=== PATIENT | female | born 1960 | race Caucasian/White ===

== ENCOUNTER 2020-05-20 14:45 | Inpatient (IN) ==
[2020-05-20] MEDS ORDERED: oxyCODONE HCL IR 5 MG TAB (IMMEDIATE RELEASE) PO STA (15:14)
--- NOTE | 2020-05-20 15:41 | Emergency Department Note ---
Impression & Plan Closed right ankle fracture, Cirrhosis ED Provider Note CHIEF COMPLAINT: Right ankle pain HISTORY OF PRESENT ILLNESS: This 59-year-old female patient presents to the emergency department via private vehicle 1 day after sustaining an injury to the right lower leg, ankle and foot when she tripped on a table leg and fell, landing on the right lower extremity. She states her right foot got caught below her during the fall. The patient complains of pain along the entire tibia/fibula, ankle, and foot, primarily the lateral aspect of the right foot. The patient rates the pain as throbbing and aching and 8/10. The patient is not able to bear weight on the foot. Constant pain, worse with movement, weight bearing, and the dependent position. No knee pain, the patient is able to move their toes. No numbness or weakness of the foot, no laceration. The patient has not had a previous fracture to this ankle. The patient has taken 2 Tylenol for the pain. The patient denies any other injury. REVIEW OF SYSTEMS: A 6 system review of systems was completed with positives and pertinent negatives listed in the HPI. ALLERGIES: None PHYSICAL EXAM: Vital Signs: Reviewed Nurse's notes, vital signs stable. GENERAL: This is a 59-year-old white female, no acute distress, but appears in pain, well-developed, well-nourished. MENTAL STATUS: Alert, oriented to person place and time, and cooperative. MUSCULOSKELETAL: The right ankle is diffusely swollen and tender, swelling extending into the foot and more proximally over the davis, the lateral malleolus, but the skin is intact and there is no ligamentous instability. There is fifth metatarsal tenderness. There is tenderness over the rest of the foot. There is no calf tenderness. There is no visual deformity. The foot and toes are warm and well-perfused. Dorsalis pedis pulse 2+. Sensation to pain and light touch is intact. Capillary refill less than 2 seconds. RADIOLOGY: RIGHT TIBIA AND FIBULA 2 VIEWS; RIGHT ANKLE 3 VIEWS CLINICAL HISTORY: Fall with right leg injury. FINDINGS: AP and crosstable lateral views of the right tibia and fibula with AP, crosstable lateral, and oblique views of the right ankle are obtained. No prior studies are available for comparison at the time of dictation. The skeletal str uctures are osteopenic. There is a distracted an angulated spiral fracture of the distal fibula. There is also a displaced fracture of the medial malleolus. There is medial displacement of the talus by approximately 1 cm at the tibiotalar articulation. There are also be fracture of the posterior malleolus. There is associated joint effusion, significant soft tissue edema around the ankle. The proximal tibia and fibula appear intact. The knee joint is grossly maintained. An os trigonum is incidentally noted. IMPRESSION: 1. Bimalleolar (and possibly trimalleolar) fracture/dislocation of the ankle joint as above 2. There is associated joint effusion and soft tissue edema. 3. The proximal tibia and fibula appear intact. Electronically signed by: Perez Chavez M.D. 05/20/2020 3:56 PM XR foot RT min 3V routine CLINICAL HISTORY: Right foot pain status post trauma COMPARISON: None. DISCUSSION: The lateral view reveals a distal fibular fracture, medial malleolar fracture, and disruption of the ankle mortise. There is a small age- indeterminate bony density projected over the dorsal aspect of the talus. No fractures of the foot proper are visualized. IMPRESSION: Fracture subluxation of the ankle. ACT 112: Negative or not required by law. Electronically signed by: Hill Pruitt M.D. 05/20/2020 3:42 PM XR ankle RT 2V HISTORY: 59 years-old Female post-reduction acute right ankle fracture COMPARISON: Right foot and ankle radiographs of same day at 3:28 PM TECHNIQUE: 2 views of the right ankle were obtained status post reduction and casting FINDINGS: Status post reduction and casting of the acute trimalleolar right ankle fracture. There is persistent displacement and angulation of the distal fibular fracture which appears unchanged. Mildly comminuted posterior malleolar fracture is also unchanged. There is slightly improved alignment of the medial malleolar fracture with persistent displacement. Moderate diffuse soft tissue swelling with probable joint effusion. Fine bony detail is limited secondary to overlying casting material. IMPRESSION: Status post casting and reduction of the acute trimalleolar right ankle fracture with alignment as above. ACT 112: Negative or not required by law. The above report was generated using voice recognition software. It may contain grammatical, syntax or spelling errors. Electronically signed by: Jorge Frausto M.D. 05/20/2020 5:11 PM EMERGENCY DEPARTMENT COURSE: I examined the patient. Patient was medicated with OxyIR for pain. The extremity was elevated and iced. X-rays of the right ankle, foot, and tibia/fibula were reviewed by myself and read by radiology and reveal a trimalleolar fracture/dislocation of the right ankle. I discussed the findings with the patient at bedside. I discussed the case with Shamir Muller PA-C with Orthopedics/Dr. Schneider. Recommendation made to attempt to reduce fracture as best as possible, splint the extremity, and given ambulatory dysfunction and complications at home, with reported frequent falls, per her sister, she will be admitted to the hospital/medicine service for optimization and for more definitive care with orthopedics. I discussed the case with the propagation manager. I discussed the case with Dr. Chaidez, [facility] Hospitalist physician. He did agree to see and evaluate the patient. IV access obtained, labs drawn for admission. The patient was medicated with 100mcg IV Fentanyl. The ankle was minimally reduced, however the patient did not tolerate this procedure well at all. A well-padded posterior leg/stirrup orthoglass splint was applied to the ankle under my direction and the position was satisfactory. Neurovascular status was rechecked by myself and intact. Post-reduction films with very minimal improvement in alignment of the medial malleolar fracture. The patient will be admitted to the hospitalist service. Please see hospitalist and orthopedics dictation regarding ongoing management and care of this patient. PROCEDURE NOTE: Right ankle fracture reduction and splint application: Verbal consent obtained to perform the procedure. The patient was medicated with IV Fentanyl. The toes were grasped and pressure gently applied to the lateral aspect of the ankle. Minimal movement noted at the joint. The patient was not tolerating the procedure well, screaming and crying out in pain. Decision made at this time to splint in place. Cast padding used to pad the extremity. A posterior leg with stirrup orthoglass splint applied and secured with chacha wrap. Neurovascular status rechecked and intact. DIFFERENTIAL DIAGNOSIS: Fracture, subluxation, dislocation, contusion, ligamentous injury, neurovascular, compartment syndrome, rhabdomyolysis, as well as other pathologies. I attest that I have personally reviewed the patient's current medication list. Patient was found to have normal blood pressure on screening and does not require follow-up. The chart was completed utilizing [employer] Speech voice recognition software. Grammatical errors, random word insertions, pronoun errors, and incomplete s entences are an occasional consequence of this system due to software limitations, ambient noise, and hardware issues. Any formal questions or concerns about the content, text, or information contained within the body of this dictation should be directly addressed to the provider for clarification. Past Med/Surg History Medical History Chronic kidney disease Cirrhosis of liver History of alcohol abuse Hypothyroidism Incontinence Social History Smoking Status: Current every day smoker Feels Safe at Home: Yes Allergies Allergies Allergy/AdvReac Type Severity Reaction Status Date / Time No Known Allergies Allergy Unverified 05/20/20 16:10 Home Meds Home Medications Medication Instructions Recorded Confirmed ferrous sulfate 325 mg PO QAM 05/20/20 05/20/20 folic acid 1 mg PO QAM 05/20/20 05/20/20 lactulose 20 g PO DAILY 05/20/20 05/20/20 levothyroxine 25 mcg PO DAILY 05/20/20 05/20/20 pantoprazole 40 mg PO QAM 05/20/20 05/20/20 propranolol 40 mg PO DAILY 05/20/20 05/20/20 sertraline [Zoloft] 100 mg PO QPM 05/20/20 05/20/20 spironolactone 50 mg PO BID 05/20/20 05/20/20 Results & Data (ED) Vital Signs Vital Signs - 24 hr 05/20/20 14:48 Temperature 37 C Temperature Source Oral Pulse Rate 70 Respiratory Rate 18 Blood Pressure 108/66 Blood Pressure Mean 80 Pulse Oximetry 97 Oxygen Delivery Method Room Air Sepsis Recent Fever Within 48 Hours No Sepsis New/Unexplained Change in Mental Status No Sepsis Action Taken by Nursing No Action Required Laboratory Data Result diagrams: 05/20/20 16:22 05/20/20 16:22 Lab Results 05/20/20 05/20/20 05/20/20 Range/Units 16:22 16:22 16:22 WBC 7.36 (4.8-10.8) K/uL RBC 2.74 L (4.2-5.4) M/uL Hgb 8.8 L (12.0-16.0) g/dL Hct 26.9 L (37-47) % MCV 98.2 (80-100) fL MCH 32.1 (25-34) pg MCHC 32.7 (32-36) g/dL RDW Std Deviation 64.6 H (36.4-46.3) fL RDW Coeff of Lam 18.1 H (11.5-14.5) % Plt Count 113 L (130-400) K/uL MPV 10.5 H (7.4-10.4) fL Immature Gran % (Auto) 0.5 % Neut % (Auto) 66.2 % Lymph % (Auto) 16.2 % Candler % (Auto) 16.2 % Eos % (Auto) 0.4 % Baso % (Auto) 0.5 % Neut # (Auto) 4.87 (1.4-6.5) K/uL Lymph # (Auto) 1.19 L (1.2-3.4) K/uL Candler # (Auto) 1.19 H (0.11-0.59) K/uL Eos # (Auto) 0.03 (0-0.5) K/uL Baso # (Auto) 0.04 (0-0.2) K/uL Immature Gran # (Auto) 0.04 H (0.00-0.02) K/uL PT 14.6 H (9.0-12.0) Seconds INR 1.4 H (0.9-1.1) APTT 30.5 (21.0-31.0) Seconds PTT Ratio 1.1 Sodium 139 (136-145) mmol/L Potassium 3.7 (3.5-5.1) mmol/L Chloride 107 (98-107) mmol/L Carbon Dioxide 24 (21-32) mmol/L Anion Gap 8.0 (3-11) BUN 16 (7-18) mg/dl Creatinine 1.06 (0.6-1.2) mg/dl Est Cr Clr Drug Dosing Not Reportable Est GFR ( Amer) 67.0 Est GFR (Non-Af Amer) 57.8 BUN/Creatinine Ratio 15.5 (10-20) Glucose 93 (70-99) mg/dl Calcium 8.2 L (8.5-10.1) mg/dl Total Bilirubin 3.6 H (0.2-1) mg/dl AST 97 H (15-37) U/L ALT 29 (12-78) U/L Alkaline Phosphatase 156 H (45-117) U/L Total Protein 7.3 (6.4-8.2) gm/dl Albumin 2.5 L (3.4-5.0) gm/dl Globulin 4.8 H (2.5-4.0) gm/dl Albumin/Globulin Ratio 0.5 L (0.9-2) Administered Medications Discontinued Medications Fentanyl Citrate (Fentanyl Citrate 100 Mcg/2 Ml Vial) 100 mcg IV NOW STA Stop: 05/20/20 16:24 Last Admin: 05/20/20 16:42 Dose: 100 mcg Documented by: [id number] Oxycodone HCl (Oxycodone Hcl Ir 5 Mg Tab (Immediate Release)) 5 mg PO NOW STA Stop: 05/20/20 15:15 Last Admin: 05/20/20 15:29 Dose: 5 mg Documented by: [id number] Discharge Plan Visit Data Chief Complaint: Ankle Pain Stated Complaint: BROKEN ANKLE ED Provider: Raffi Bosch ED Midlevel Provider: Jessica Sullivan Discharge Problem: Closed right ankle fracture, Cirrhosis Patient Disposition: Admitted As Inpatient Condition: Good Forms Stand Alone Forms: My [facility] Prescriptions Prescriptions: No Action ferrous sulfate 325 mg (65 mg iron) Capsule, Extended Release 325 mg PO QAM RF: 0 folic acid 1 mg Tablet 1 mg PO QAM RF: 0 lactulose 10 gram/15 mL Solution 20 g PO DAILY RF: 0 levothyroxine 25 mcg Capsule 25 mcg PO DAILY RF: 0 pantoprazole 40 mg Tablet,Delayed Release (Dr/Ec) 40 mg PO QAM RF: 0 propranolol 40 mg Tablet 40 mg PO DAILY RF: 0 spironolactone 50 mg Tablet 50 mg PO BID RF: 0 sertraline [Zoloft] 100 mg Tablet 100 mg PO QPM RF: 0 Referrals Referrals: PCP,NO [Primary Care Provider] -
--- NOTE | 2020-05-20 15:43 | XRay Report ---
XR foot RT min 3V routine CLINICAL HISTORY: Right foot pain status post trauma COMPARISON: None. DISCUSSION: The lateral view reveals a distal fibular fracture, medial malleolar fracture, and disrup tion of the ankle mortise. There is a small age-indeterminate bony density projected over the dorsal aspect of the talus. No fractures of the foot proper are visualized. IMPRESSION: Fracture subluxation of the ankle. ACT 112: Negative or not required by law. Electronically signed by: Hill Pruitt M.D. 05/20/2020 3:42 PM
--- NOTE | 2020-05-20 15:57 | XRay Report ---
RIGHT TIBIA AND FIBULA 2 VIEWS; RIGHT ANKLE 3 VIEWS CLINICAL HISTORY: Fall with right leg injury. FINDINGS: AP and crosstable lateral views of the right tibia and fibula with AP, crosstable lateral, and oblique views of the right ankle are obtained. No prior studies are available for comparison at t he time of dictation. The skeletal structures are osteopenic. There is a distracted an angulated spir al fracture of the distal fibula. There is also a displaced fracture of the medial malleolus. There i s medial displacement of the talus by approximately 1 cm at the tibiotalar articulation. There are al so be fracture of the posterior malleolus. There is associated joint effusion, significant soft tissu e edema around the ankle. The proximal tibia and fibula appear intact. The knee joint is grossly main tained. An os trigonum is incidentally noted. IMPRESSION: 1. Bimalleolar (and possibly trimalleolar) fracture/dislocation of the ankle joint as above 2. There is associated joint effusion and soft tissue edema. 3. The proximal tibia and fibula appear intact. Electronically signed by: Perez Chavez M.D. 05/20/2020 3:56 PM
[2020-05-20] MEDS ORDERED: fentaNYL citrate 100 MCG/2 ML VIAL IV STA (16:23)
[2020-05-20 16:33] LABS: Basophils # (auto) 0.04 K/uL (0-0.2); Basophils % (auto) 0.5 %; Eosinophils # (auto) 0.03 K/uL (0-0.5); Eosinophils % (auto) 0.4 %; Hematocrit (blood only) 26.9 % (37-47); Hemoglobin 8.8 g/dL (12.0-16.0); Immature Granulocytes # (auto) 0.04 K/uL (0.00-0.02); Immature Granulocytes % (auto) 0.5 %; Lymphocytes # (auto) 1.19 K/uL (1.2-3.4); Lymphocytes % (auto) 16.2 %; Mean Corpuscular Hemoglobin 32.1 pg (25-34); Mean Corpuscular Hgb Conc 32.7 g/dL (32-36); Mean Corpuscular Volume 98.2 fL (80-100); Mean Platelet Volume 10.5 fL (7.4-10.4); Monocytes # (auto) 1.19 K/uL (0.11-0.59); Monocytes % (auto) 16.2 %; Neutrophils # (auto) 4.87 K/uL (1.4-6.5); Neutrophils % (auto) 66.2 %; Platelet Count 113 K/uL (130-400); RDW Coefficient of Variation 18.1 % (11.5-14.5); RDW Standard Deviation 64.6 fL (36.4-46.3); Red Blood Count 2.74 M/uL (4.2-5.4); White Blood Count 7.36 K/uL (4.8-10.8)
--- NOTE | 2020-05-20 16:48 | History & Physical Report ---
Date of Service May 20, 2020 Assessment & Plan (1) Closed right ankle fracture: Patient has a bimalleolar trimalleolar fracture right ankle which was sustained at least 1 day prior to his market swelling she is sensation and capillary refill intact. She will be kept n.p.o. after midnight with orthopedic evaluation for possible surgical correction on 05/21/2020 her preoperative laboratories show a normocytic anemia elevation of her bilirubin mild elevation of her INR. Chest x-ray and EKG are currently pending at the time of this dictation these will be reviewed. 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 She reportedly has not had a paracentesis for 9 months. Patient takes lactulose and Aldactone. These will be continued however if the patient has early b may delay her lactulose administration in the morning to avoid bowel movements intraoperatively (3) Anemia: Patient is a normocytic anemia she previously was prescribed iron is unclear whether she may have GI blood loss sources such as varices or [address] patient will have an iron level checked in the morning and likely reinstitute on her iron in the postoperative phase of her stay (4) Elevated bilirubin: Patient is obviously jaundiced patient's family states she is always jaundice unclear whether the bilirubin at 3 is her normal range or not. Her AST is mildly elevated 97 ALT is normal alcohol line phosphatase is also mildly elevated at 156 attempt to get records from [facility] where she was received most of her previous care (5) Thrombocytopenia: Patient is thrombocytopenia is most likely related to her her cirrhosis we will follow this in the morning History of Present Illness Primary Care Provider: NO PCP Patient presents 24 hours after falling at home she is a trimalleolar ankle injury. She is a significant history of previous alcoholism and cirrhosis taking daily lactulose and Aldactone. She has been recently admitted to [facility] in January of this year for hepatic encephalopathy. Reportedly she has been drinking for a few years. Does not have any local physicians. We are asked to admit the patient for medical optimization given her paucity of past records in preparation for surgical repair of her ankle fracture. Dr. Schneider was contacted by the emergency department Patient herself is pleasant she is slightly forgetful she can record most of her medical history she states that she has not had a paracentesis for 9 months that she typically takes her lactulose and Aldactone religiously denies any other significant medical problems Allergies Allergy/AdvReac Type Severity Reaction Status Date / Time No Known Allergies Allergy Unverified 05/20/20 16:10 Home Medications Home Medications Medication Instructions Recorded Confirmed Type ferrous sulfate 325 mg PO QAM 05/20/20 05/20/20 History folic acid 1 mg PO QAM 05/20/20 05/20/20 History lactulose 20 g PO DAILY 05/20/20 05/20/20 History levothyroxine 25 mcg PO DAILY 05/20/20 05/20/20 History pantoprazole 40 mg PO QAM 05/20/20 05/20/20 History propranolol 40 mg PO DAILY 05/20/20 05/20/20 History sertraline [Zoloft] 100 mg PO QPM 05/20/20 05/20/20 History spironolactone 50 mg PO BID 05/20/20 05/20/20 History Past Med/Surg History Medical History (Updated 05/20/20 @ 17:10 by Deny Chaidez MD) Cirrhosis of liver History of alcohol abuse Social History Smoking Status: Current every day smoker Feels Safe at Home: Yes Review of Systems Review of Systems: Mild distress and fatigue no headache, blurry or double vision no speech or swallowing issues no chest pain, pressure or palpitations no shortness of breath, cough or wheezes no abdominal pain, nausea or vomiting, mild distention and expected diarrhea no dysuria, hematuria or frequency Significant right joint pain with angulation swelling and discomfort to exam no back pain, CVA tenderness or radicular pain no bruising, bleeding or rashes no focal signs of weakness or numbness or altered sensation no complaints of anxiety or depression. Physical Exam Physical Exam: The patient appeared well nourished and normally developed. Vital signs as documented. Head exam is normocephalic atraumatic + scleral icterus Neck is without JVD, thyromegaly, or carotid bruits. Lungs are clear to auscultation, no focal loss of breath sounds Cardiac exam, Rhythm is regular.. No murmurs, rubs or gallops. Abdominal exam reveals normal bowel sounds, soft mildly distension, hepatomegally Extremities are trace edematous and both pedal pulses are present Neurologic exam is alert and oriented, slightly confused no focal loss of strength or sensation Skin is without bruises or rashes, mildly jaundiced Psychologically is without concerns for anxiety or depression. Results & Data Results & Data ([facility]) Vital Signs (Past 12 Hours) Vital Signs Temp Pulse Resp BP Pulse Ox 05/20/20 14:48 98.6 F 70 18 108/66 97 PG Care Time/CCT Total # of Minutes Spent Total Time Spent with Patient: Total time spent is greater than 50% in coordination of care (as documented) at patient's floor/unit and/or counseling patient: Coding Level of Care Code 39725 Initial Inpt Care Lvl 3 Diagnoses Closed right ankle fracture S82.891A Cirrhosis K74.60 Anemia D64.9 Elevated bilirubin R17 Thrombocytopenia D69.6
[2020-05-20 16:49] LABS: INR 1.4 (0.9-1.1); Partial Thromboplastin Ratio 1.1; Partial Thromboplastin Time 30.5 Seconds (21.0-31.0); Prothrombin Time 14.6 Seconds (9.0-12.0)
[2020-05-20 16:51] LABS: Alanine Aminotransferase 29 U/L (12-78); Albumin Level 2.5 gm/dl (3.4-5.0); Aspartate Aminotransferase 97 U/L (15-37); BUN Creatinine Ratio 15.5 (10-20); Blood Urea Nitrogen 16 mg/dl (7-18); Calcium 8.2 mg/dl (8.5-10.1); Carbon Dioxide 24 mmol/L (21-32); Chloride 107 mmol/L (98-107); Est GFR (Non-African American) 57.8; Glucose 93 mg/dl (70-99); Potassium 3.7 mmol/L (3.5-5.1); Sodium 139 mmol/L (136-145)
[2020-05-20 16:53] LABS: Albumin Globulin Ratio 0.5 (0.9-2); Alkaline Phosphatase 156 U/L (45-117); Bilirubin,Total 3.6 mg/dl (0.2-1); Globulin 4.8 gm/dl (2.5-4.0); Total Protein 7.3 gm/dl (6.4-8.2)
--- NOTE | 2020-05-20 17:13 | XRay Report ---
XR ankle RT 2V HISTORY: 59 years-old Female post-reduction acute right ankle fracture COMPARISON: Right foot and ankle radiographs of same day at 3:28 PM TECHNIQUE: 2 views of the right ankle were obtained status post reduction and casting FINDINGS: Status post reduction and casting of the acute trimalleolar right ankle fracture. There is persistent displacement and angulation of the distal fibular fracture which appears unchanged. Mildly comminute d posterior malleolar fracture is also unchanged. There is slightly improved alignment of the medial malleolar fracture with persistent displacement. Moderate diffuse soft tissue swelling with probable joint effusion. Fine bony detail is limited secondary to overlying casting material. IMPRESSION: Status post casting and reduction of the acute trimalleolar right ankle fracture with ali gnment as above. ACT 112: Negative or not required by law. The above report was generated using voice recognition software. It may contain grammatical, syntax o r spelling errors. Electronically signed by: Jorge Frausto M.D. 05/20/2020 5:11 PM
[2020-05-20] MEDS ORDERED: NALOXONE HCL 0.4 MG/1 ML VIAL/CARP IV PRN (18:59)
[2020-05-20] MEDS ORDERED: bisacodyL 10 MG SUPP PR PRN (18:59)
[2020-05-20] MEDS ORDERED: HYDROmorphone INJ 0.5 MG/0.5 ML SYR IV PRN (18:59)
[2020-05-20] MEDS ORDERED: ONDANSETRON INJ 2 MG/ML 2 ML VIAL IV PRN (18:59)
[2020-05-20] MEDS ORDERED: MAGNESIUM HYDROXIDE SUSP 30 ML UDC PO PRN (18:59)
[2020-05-20] MEDS ORDERED: POLYETHYLENE (MIRALAX) 17 GM PACK PO PRN (18:59)
--- NOTE | 2020-05-20 19:22 | XRay Report ---
XR chest 1V portable HISTORY: 59 years-old Female pre op preoperative exam. No acute chest complaints COMPARISON: None TECHNIQUE: Portable AP view of the chest FINDINGS: Cardiac silhouette is mildly enlarged. Small right pleural effusion with right lung base opacities. N o pneumothorax or overt pulmonary edema. The left lung is generally clear. Bones of the chest appear grossly intact. Right paratracheal opacity may correlate with a vascular pedicle. IMPRESSION: Small right pleural effusion with right lung base opacities suggestive of atelectasis shannon perla pneumonia. ACT 112: Negative or not required by law. The above report was generated using voice recognition software. It may contain grammatical, syntax o r spelling errors. Electronically signed by: Jorge Frausto M.D. 05/20/2020 7:21 PM
--- NOTE | 2020-05-20 20:47 | Anesthesiology Consultation ---
Date of Service May 20, 2020 Assessment & Plan Chart Review Chart Review: Acceptable Risk for Surgery and Patient NOT seen in Pre Admission Testing Consults Requested none ASA ASA4 Proposed Anesthesia Anesthesia Type: General Regional Regional Laterality: Right Site: Popliteal and Adductor Canal History Surgery Operation Date: 05/21/20 09:30 Proposed Procedures p Right Ankle Open Reduction Internal Fixation - Vinh Schneider MD Height/Weight Height: 5 ft 8 in Weight: 77.7 kg Allergies Allergy/AdvReac Type Severity Reaction Status Date / Time No Known Allergies Allergy Unverified 05/20/20 16:10 Medications Home Medications Medication Instructions Recorded Confirmed Last Taken ferrous sulfate 325 mg PO QAM 05/20/20 05/20/20 Unknown folic acid 1 mg PO QAM 05/20/20 05/20/20 Unknown lactulose 20 g PO DAILY 05/20/20 05/20/20 Unknown levothyroxine 25 mcg PO DAILY 05/20/20 05/20/20 Unknown pantoprazole 40 mg PO QAM 05/20/20 05/20/20 Unknown propranolol 40 mg PO DAILY 05/20/20 05/20/20 Unknown sertraline [Zoloft] 100 mg PO QPM 05/20/20 05/20/20 Unknown spironolactone 50 mg PO BID 05/20/20 05/20/20 Unknown Past Medical History Medical History Chronic kidney disease Cirrhosis of liver History of alcohol abuse Hypothyroidism Incontinence Exercise / Class Metabolic Activity III < 4 Walking/Shop/Light housework Past Anesthesia History No Hx of Anesthesia Complications and No Family Hx of Anesthesia Complications History of PONV No Hx of PONV and No Hx of Motion Sickness Social History Smoking Status: Current every day smoker tobacco type: cigarettes Smoking cigarettes per day: 3-4 Do You Dip or Chew Tobacco: No Hx Alcohol Use: Yes Alcohol type: beer alcohol intake frequency: 0-2 drinks per day Hx Substance Use: No substance use type: does not use Physical Exam Vital Signs Last Vital Signs Temp 36.7 C 05/20/20 18:55 Pulse 73 05/20/20 18:55 Resp 18 05/20/20 18:55 BP 108/68 05/20/20 18:55 Pulse Ox 97 05/20/20 18:55 Testing Laboratory Results 05/20/20 16:22 05/20/20 16:22 PT 14.6 Seconds (9.0-12.0) H 05/20/20 16:22 INR 1.4 (0.9-1.1) H 05/20/20 16:22 APTT 30.5 Seconds (21.0-31.0) 05/20/20 16:22 Blood Type O Positive 05/20/20 19:20 Antibody Screen NEGATIVE 05/20/20 19:20
[2020-05-20] MEDS: SPIRONOLACTONE 25 MG TAB PO SCH (21:41)
[2020-05-20] MEDS: PROPRANOLOL HCL 10 MG TAB PO SCH (21:41)
[2020-05-20] MEDS: DOCUSATE SODIUM/SENNA 50/8.6MG TAB PO SCH (21:41)
[2020-05-20] MEDS: SERTRALINE HCL 100 MG TABLET PO SCH (21:42)
[2020-05-20] MEDS: oxyCODONE HCL IR 5 MG TAB (IMMEDIATE RELEASE) PO PRN (21:44)
[2020-05-21] MEDS: LACTATED RINGER'S 1,000 ML IV SCH ×2 (01:10→13:11)
[2020-05-21] MEDS ORDERED: ceFAZolin 2000MG 2,000 MG/15 ML SYR IV SCH (06:00)
[2020-05-21] MEDS: LEVOTHYROXINE SODIUM 25 MCG TABLET PO SCH (07:07)
[2020-05-21 07:28] LABS: Hematocrit (blood only) 25.5 % (37-47); Hemoglobin 8.3 g/dL (12.0-16.0); Mean Corpuscular Hgb Conc 32.5 g/dL (32-36); Mean Corpuscular Volume 98.5 fL (80-100); RDW Standard Deviation 64.6 fL (36.4-46.3); Red Blood Count 2.59 M/uL (4.2-5.4); White Blood Count 6.36 K/uL (4.8-10.8)
[2020-05-21 07:38] LABS: INR 1.5 (0.9-1.1); Prothrombin Time 15.1 Seconds (9.0-12.0)
--- NOTE | 2020-05-21 07:48 | Orthopedic Consultation ---
Date of Consultation May 21, 2020 Assessment & Plan (1) Closed right ankle fracture: Plan is to take her to the operating room today for an open reduction internal fixation. The wrist event this procedure explained the patient include but not limited to DVT PE infection neurological and vascular bleeding problems nonunion malunion need for further surgery future etc. The patient understands desires to proceed. Informed consent was obtained. Present on Admission?: Yes (2) Cirrhosis: (3) Anemia: History of Present Illness Reason for Consultation: Right ankle fracture Attending Physician: Deny Chaidez MD History of Present Illness 59-year-old female with a known history of significant alcohol use and alcoholic cirrhosis who sustained a fall about 2 evenings ago. She just tripped at home. She twisted her ankle. She had acute onset of pain. She did present to the ER to last night. X-rays revealed a ankle fracture. She has been admitted by the medicine service and will consult for treatment. Denies any other injuries.She did undergo a closed reduction and splinting in the ER.This is a closed injury. Allergies Allergy/AdvReac Type Severity Reaction Status Date / Time No Known Allergies Allergy Unverified 05/20/20 16:10 Home Medications Home Medications Medication Instructions Recorded Confirmed Type ferrous sulfate 325 mg PO QAM 05/20/20 05/20/20 History folic acid 1 mg PO QAM 05/20/20 05/20/20 History lactulose 20 g PO DAILY 05/20/20 05/20/20 History levothyroxine 25 mcg PO DAILY 05/20/20 05/20/20 History pantoprazole 40 mg PO QAM 05/20/20 05/20/20 History propranolol 40 mg PO DAILY 05/20/20 05/20/20 History sertraline [Zoloft] 100 mg PO QPM 05/20/20 05/20/20 History spironolactone 50 mg PO BID 05/20/20 05/20/20 History Patient History Medical History Chronic kidney disease Cirrhosis of liver History of alcohol abuse Hypothyroidism Incontinence Social History Smoking Status: Current every day smoker Cigarettes Per Day: 3-4; Second Hand Exposure: No; Do You Dip or Chew Tobacco: No; Tobacco Cessation Education Requested by Patient: No Hx Alcohol Use: Yes Alcohol type: beer Hx Substance Use: No Preferred Language: Azeri Communication Ability: Effective Upper Cutter Required: No Beliefs That Will Affect Care: None Current Living Situation: Alone Other Information That Helps Us Care for You: No Feels Safe at Home: Yes Safety Concerns: Feels Safe At This Time Assistive Devices: Glasses Review of Systems Review of Systems: All systems reviewed & are unremarkable except as noted in HPI & below Physical Exam Physical Exam: Physical examination reveals a pleasant middle-aged female. Looks been in reasonably good health. General musculoskeletal exam reveals no obvious deformity to her spine head and neck upper extremities or left lower extremity. Examination of the right lower extremity reveals a splint to be in place with an Prem bandage. Her her ankle grossly looks acceptably aligned. Her foot in slight plantarflexion. She can flex extend her toes appropriately. She is neurologically intact. Constitutional: WD/WN, vitals as above Neck: trachea midline, no thyromegaly Respiratory: normal respiratory effort, lungs clear to auscultation Cardiovascular: RRR, no murmur, no edema Gastrointestinal (Abdomen): normal bowel sounds, soft, nontender, no hepatosplenomegaly Musculoskeletal: Musculoskeletal exam the right ankle reveals a splint in place. Ankle is grossly aligned. She can dorsiflex and plantarflex her foot appropriately. Mild swelling. Results & Data ([facility]) Vital Signs (Past 12 Hours) Vital Signs Temp Pulse Resp BP BP Pulse Ox 05/21/20 03:53 37.0 C 81 18 108/66 93 05/20/20 23:30 37.3 C 81 16 93/54 L 94 PG Care Time/CCT Total # of Minutes Spent Total Time Spent with Patient: Total time spent is greater than 50% in coordination of care (as documented) at patient's floor/unit and/or counseling patient: Coding Level of Care Code 76804 Inpt Consult Level 3 Diagnoses Closed right ankle fracture S82.891A Encounter type: initial encounter Cirrhosis K70.30 Ascites presence: without ascites Hepatic cirrhosis type: alcoholic cirrhosis Anemia D64.9 (1) Closed right ankle fracture Encounter type: initial encounter Qualified Code(s): S82.891A - Other fracture of right lower leg, initial encounter for closed fracture (2) Cirrhosis Ascites presence: without ascites Hepatic cirrhosis type: alcoholic cirrhosis Qualified Code(s): K70.30 - Alcoholic cirrhosis of liver without ascites
[2020-05-21 07:56] LABS: BUN Creatinine Ratio 17.8 (10-20); Calcium 8.6 mg/dl (8.5-10.1); Creatinine Clr Calc Pharmacy 61.7 ml/min; Est GFR (African American) 64.8; Est GFR (Non-African American) 55.9; Potassium 4.1 mmol/L (3.5-5.1)
[2020-05-21 08:10] LABS: Mean Platelet Volume 9.9 fL (7.4-10.4); Platelet Count 98 K/uL (130-400); Platelet Estimate Decreased (Normal)
[2020-05-21] MEDS ORDERED: PHYTONADIONE 5 MG in SODIUM CHLORIDE 0.9% 50 ML IV ONE (08:45)
[2020-05-21] MEDS ORDERED: PROPRANOLOL HCL LA 80 MG CAPCR PO SCH (09:00)
[2020-05-21] MEDS ORDERED: BUPIVACAINE 0.5 % 5 MG/1 ML MPF 30ML VIAL ONE (09:24)
[2020-05-21] MEDS ORDERED: BACITRACIN INJ 50,000 UNIT VIAL ONE (09:24)
[2020-05-21] MEDS ORDERED: EPINEPHrine INJ 1 MG/ML AMP ONE (09:24)
[2020-05-21] MEDS ORDERED: MIDAZOLAM HCL 1 MG/ML 2ML VIAL ONE (09:26)
[2020-05-21] MEDS ORDERED: fentaNYL citrate 100 MCG/2 ML VIAL ONE (09:27)
[2020-05-21] MEDS ORDERED: ONDANSETRON INJ 2 MG/ML 2 ML VIAL IV PRN ×2 (09:38→12:36)
[2020-05-21] MEDS ORDERED: NALOXONE HCL 0.4 MG/1 ML VIAL/CARP IV PRN ×2 (09:38→12:36)
[2020-05-21] MEDS ORDERED: ePHEDrine sulfate 50 MG/ML AMP IV PRN (09:38)
[2020-05-21] MEDS ORDERED: fentaNYL citrate 100 MCG/2 ML VIAL IV PRN (09:38)
[2020-05-21] MEDS ORDERED: ATROPINE SULFATE 0.1 MG/ML 10ML SYR IV PRN (09:38)
[2020-05-21] MEDS ORDERED: LABETALOL HCL IV 5 MG/ML 20ML IV PRN (09:38)
[2020-05-21] MEDS ORDERED: PROMETHAZINE HCL 12.5 MG in SODIUM CHLORIDE 0.9% 50 ML IV PRN (09:38)
[2020-05-21] MEDS ORDERED: HYDROmorphone INJ 1 MG/ML SYRINGE IV PRN (09:38)
[2020-05-21] MEDS ORDERED: FLUMAZENIL 0.1 MG/1 ML 10 ML VIAL IV PRN (09:38)
[2020-05-21] MEDS ORDERED: ePHEDrine sulfate 50 MG/ML SYR ONE ×2 (10:45→10:46)
[2020-05-21] MEDS ORDERED: ONDANSETRON INJ 2 MG/ML 2 ML VIAL ONE (10:45)
[2020-05-21] MEDS ORDERED: PROPOFOL IV EMULSION 10 MG/ML 20 ML VIAL IV ONE (10:45)
[2020-05-21] MEDS ORDERED: LIDOCAINE HCL 2% 2 ML VIAL/AMP(20MG/ML) INFIL ONE (10:45)
[2020-05-21] MEDS ORDERED: DEXAMETHASONE SOD INJ 4 MG/ML VIAL ONE (10:45)
--- NOTE | 2020-05-21 11:47 | Operative Report ---
Post Operative Report Pre & Post Diagnosis Operation Date: 05/21/20 09:30 Pre-Op Diagnosis: Closed right trimalleolar ankle fracture Post-Op Diagnosis: Closed right bimalleolar ankle fracture I identified the patient and participated in the time-out.: Yes Procedure Operation Date: 05/21/20 09:30 Actual Procedures p Right Ankle Open Reduction Internal Fixation(Right) - Vinh Schneider MD Surgeon Vinh Schneider MD Tractor Mechanic Apprentice BRAYDON Muller Estimated Blood Loss 20 Findings Consistent with Post-Op Diagnosis Fluids 1100 cc Specimens None Anesthesia Type General Complications none Disposition Accompanied Patient To Recovery: No Disposition: Recovery Room Indications Patient is a 59-year-old female with long-term alcohol abuse Cirrhosis who sustained a fall 2 days ago with a displaced trimalleolar ankle fracture. She just came to the ER last evening. She underwent a closed reduction, was admitted to the hospital, medically optimized, indicated for surgical treatment. Description of Procedure Operative implants consist of: Medial side implants consisted of: 1. 4.0 long threaded/partially-threaded cancellus screws with washers x2. Lateral side implants consisted of: 1. 3.5 fully threaded cortical screws x4. 2. 4.0 partially-threaded cancellus screw x1. 3. 3.5 fully threaded cortical locking screw x1. 4. 4.0 fully threaded cancellus screw x1. 5. 8 hole one third semitubular locking plate. Patient was taken to the operating identified and placed on the operating table supine position protectors were properly padded. IV antibiotics were 5 by anesthesia team. A general anesthetic was employed by anesthesia team. A right thigh tourniquet was then placed. The right lower extremity splint was then removed. I then scrubbed the leg with Hibiclens, prepped with ChloraPrep and draped the right lower extremity in the usual sterile fashion. Attention was first drawn to the medial side. The right leg was elevated exsanguinated with use of an Esmarch and turns placed at 300 mmHg. A curvilinear incision was made over the medial aspect of the ankle over the medial malleolus. Sharp dissection was carried through subcutaneous tissue directly down the fracture. The fracture site was identified. I did remove all periosteum from the fracture site as it was within the fracture itself. I then debrided the fracture of the hematoma. We irrigated the wound. I reduced the fracture anatomically and held it with 2 K wires. These position of these K wires was checked fluoroscopically. There was some slight comminution posteriorly. I then placed two 4.0 fully threaded long threaded cancellus screws over the wires with washers. Despite excellent medial fixation. Some final x-rays were obtained. Attention drawn laterally. Direct lateral approach to the fibula was then performed through a longitudinal incision over the lateral aspect of the fibula. Sharp dissection was carried through subcutaneous tissue directly down the fracture. I identified the fracture. We cleaned the fracture edges. We debrided of blood clot. I then reduced the fracture anatomically and held it with 2 reduction clamps. I placed a single 4.0 partially-threaded cancellus lag screw across the fracture site. I then contoured an 8 hole one third semitubular plate to the lateral aspect of the fibula. Was fixed approximately with four 3.5 fully threaded cortical screws. I fixed it distally with a single 3.5 locking screw and then a 4 oh fully threaded cancellus screw. I then brought x-rays in. I stressed the ankle and there was no signs of gapping of the medial clear space. Attention drawn toward closing. The wound was irrigated with copious amounts of normal saline. I did repair the periosteum over the fibular plate with 0 Vicryl suture. The tech was then let down for turn time 57 minutes. Hemostasis assured use electrocautery. The subcutaneous tissues of both wounds were then closed with 2-0 Dexon suture in a buried interrupted fashion and the skin was closed with 3-0 nylon suture in a simple fashion. Leg was then cleaned dried a sterile dressing composed Xer oform, 4 x 4's, sterile cast padding, and a well-padded posterior and stirrup splint were applied. Patient then brought out of general incision transferred to the recovery room in stable condition. The patient tolerated procedure well and there were no complications. Umberto Muller, my physician operations assistant, was present for the entire procedure. His assistance was required for appropriate patient positioning, prepping and draping, surgical exposure, reduction of the fracture, placing the implants, closure of the wound, placement of the sterile splint. I attest to the content of the Intraoperative Record and any orders documented therein. Any exceptions are noted below.
--- NOTE | 2020-05-21 12:15 | Electrocardiogram Report ---
Test Reason : Blood Pressure : / mmHG Vent. Rate : 072 BPM Atrial Rate : 073 BPM P-R Int : 124 ms QRS Dur : 078 ms QT Int : 428 ms P-R-T Axes : 053 047 003 degrees QTc Int : 468 ms Normal sinus rhythm Nonspecific ST abnormality Abnormal ECG No previous ECGs available Confirmed by Moiz Diggs ([id number]) on 05/21/2020 12:14:29 PM Referred By: REFERRED SELF Confirmed By:Moiz Diggs
--- NOTE | 2020-05-21 12:16 | Fluoroscopy Report ---
FL ankle RT min 3V RTN CLINICAL HISTORY: ORIF RIGHT ANKLE COMPARISON STUDY: Right ankle radiographs May 20, 2020. FLUOROSCOPY TIME: 15 seconds. FLUOROSCOPIC IMAGES: 4 FINDINGS: Fluoroscopy was provided during right ankle internal fixation. Fluoroscopic images demonstr ate plate and screw fixation of the distal right fibular fracture. Fracture alignment has markedly im proved and appears near anatomic. 2 screws fixate the fracture of the medial malleolus. Fracture alig nment has significantly improved. Hardware is intact. No ankle mortise widening is identified. There are no unexpected radiopaque foreign bodies. IMPRESSION: Fluoroscopy provided during right ankle internal fixation. ACT 112: Negative or not required by law. Electronically signed by: Demetrius Vuong M.D. 05/21/2020 12:14 PM
[2020-05-21] MEDS ORDERED: bisacodyL 10 MG SUPP PR PRN (12:36)
[2020-05-21] MEDS ORDERED: diphenhydrAMINE Capsule 25 MG CAP PO PRN (12:36)
[2020-05-21] MEDS ORDERED: ALUMINUM/MAGNESIUM SUSP 30 ML UDC PO PRN (12:36)
[2020-05-21] MEDS ORDERED: MAGNESIUM HYDROXIDE SUSP 30 ML UDC PO PRN (12:36)
[2020-05-21] MEDS ORDERED: METOCLOPRAMIDE HCL INJ 5 MG/ML 2 ML VIAL IV PRN (12:36)
--- NOTE | 2020-05-21 12:48 | Anesthesiology Progress Note ---
Date of Service May 21, 2020 Anesthesia Post Procedure Vital Signs Vital Signs: Temp Pulse Pulse Pulse Resp BP BP 05/21/20 12:45 36.9 C 82 18 125/75 05/21/20 12:25 36.5 C 78 14 118/76 05/21/20 12:20 79 12 120/81 05/21/20 12:10 80 14 128/75 05/21/20 12:00 79 16 122/82 05/21/20 11:50 37 C 89 20 115/84 05/21/20 08:51 36.8 C 71 18 111/71 05/21/20 03:53 37.0 C 81 18 108/66 05/20/20 23:30 37.3 C 81 16 05/20/20 18:55 36.7 C 73 18 108/68 05/20/20 14:48 37 C 70 18 108/66 BP Pulse Ox 05/21/20 12:45 92 05/21/20 12:25 95 05/21/20 12:20 94 05/21/20 12:10 98 05/21/20 12:00 97 05/21/20 11:50 98 05/21/20 08:51 97 05/21/20 03:53 93 05/20/20 23:30 93/54 L 94 05/20/20 18:55 97 05/20/20 14:48 97 Pain Intensity Right Ankle: Pain Intensity: 2 Transfer of Care Handoff Completed per policy Notes Mental Status: alert / awake / arousable Patient Amnestic to Procedure: Yes Nausea / Vomiting: adequately controlled Pain: adequately controlled Airway Patency, RR, SpO2: stable & adequate BP & HR: stable & adequate Hydration State: stable & adequate Anesthetic Complications: no major complications apparent
[2020-05-21] MEDS: SODIUM CHLORIDE 0.9% 1000ML 1,000 ML IV SCH (13:17)
[2020-05-21] MEDS: PROPRANOLOL HCL 10 MG TAB PO SCH ×3 (13:18→21:13)
[2020-05-21] MEDS: LACTULOSE SYRUP 20 GM/30 ML UDC PO SCH (13:19)
[2020-05-21] MEDS: PANTOprazole 40 MG TAB PO SCH (13:21)
[2020-05-21] MEDS: FOLIC ACID 1 MG TAB PO SCH (13:21)
[2020-05-21] MEDS: SPIRONOLACTONE 25 MG TAB PO SCH ×2 (13:22→21:11)
[2020-05-21] MEDS: ACETAMINOPHEN 500 MG TAB PO SCH ×2 (14:00→21:13)
[2020-05-21] MEDS: KETOROLAC TROMETHAMINE 15 MG/ML VIAL IV SCH ×2 (14:01→21:04)
--- NOTE | 2020-05-21 15:43 | Hospitalist Progress Note ---
Date of Service May 21, 2020 Assessment & Plan (1) Closed right ankle fracture: Patient has a bimalleolar vs trimalleolar fracture right ankle which was sustained at least 1 day prior surgical correction on 05/21/2020 patient will be utilized for preoperative antibiotics based upon previous preoperative orthopedic order sets (2) Cirrhosis: Cirrhosis due to alcoholism has been without drinking alcohol for some time patient reportedly was in [facility] for hepatic encephalopathy in January. She reportedly has not had a paracentesis for 9 months. Patient takes lactulose and Aldactone. (3) Anemia: Patient is a normocytic anemia she previously was prescribed iron is unclear whether she may have GI blood loss sources such as varices or G [address] patient will have an iron level checked in the morning and likely reinstitute on her iron in the postoperative phase of her stay (4) Elevated bilirubin: Patient is obviously jaundiced patient's family states she is always jaundice unclear whether the bilirubin at 3 is her normal range or not. attempt to get records from [facility] where she was received most of her previous care (5) Thrombocytopenia: Patient is thrombocytopenia is most likely related to her her cirrhosis we will follow this in the morning (6) DVT prophylaxis: Surgery is chosen aspirin twice daily for DVT prevention Admission and Anticipated Discharge Date Admission Date: May 20, 2020 Subjective Patient seen postoperatively she is slightly sedate she otherwise has no complaints or problems she had a restful night blood work this morning appears to be stable exception of her pre-existing anemia and a elevated INR. She was given vitamin K preoperatively Review of Systems Review of Systems: Mild distress and fatigue no headache, blurry or double vision no speech or swallowing issues no chest pain, pressure or palpitations no shortness of breath, cough or wheezes no abdominal pain, nausea or vomiting, mild distention and expected diarrhea no dysuria, hematuria or frequency Significant right joint pain with angulation swelling and discomfort to exam no back pain, CVA tenderness or radicular pain no bruising, bleeding or rashes no focal signs of weakness or numbness or altered sensation no complaints of anxiety or depression. Physical Exam Physical Exam: The patient appeared well nourished and normally developed. Vital signs as documented. Head exam is normocephalic atraumatic + scleral icterus Neck is without JVD, thyromegaly, or carotid bruits. Lungs are clear to auscultation, no focal loss of breath sounds Cardiac exam, Rhythm is regular.. No murmurs, rubs or gallops. Abdominal exam reveals normal bowel sounds, soft mildly distension, hepatomegally Extremities right lower extremity is in a brace she has good distal sensation to gross examination Neurologic exam is alert and oriented, slightly confused no focal loss of strength or sensation Skin is without bruises or rashes, mildly jaundiced Psychologically is without concerns for anxiety or depression. Results & Data Results & Data ([facility]) Vital Signs (Past 12 Hours) Vital Signs Temp Pulse Pulse Resp BP BP Pulse Ox 05/21/20 15:25 97.9 F 70 19 113/67 97 05/21/20 13:35 97.7 F 74 18 131/60 94 05/21/20 13:05 98.2 F 71 18 125/77 93 05/21/20 12:45 98.4 F 82 18 125/75 92 05/21/20 12:25 97.7 F 78 14 118/76 95 05/21/20 12:20 79 12 120/81 94 05/21/20 12:10 80 14 128/75 98 05/21/20 12:00 79 16 122/82 97 05/21/20 11:50 98.6 F 89 20 115/84 98 05/21/20 08:51 98.2 F 71 18 111/71 97 05/21/20 03:53 98.6 F 81 18 108/66 93 PG Care Time/CCT Total # of Minutes Spent Total Time Spent with Patient: Total time spent is greater than 50% in coordination of care (as documented) at patient's floor/unit and/or counseling patient: Coding Level of Care Code 07425 Subseq Hosp Care Lvl 2 Diagnoses Closed right ankle fracture S82.891A Encounter type: initial encounter Cirrhosis K70.30 Ascites presence: without ascites Hepatic cirrhosis type: alcoholic cirrhosis Anemia D64.9 Elevated bilirubin R17 Thrombocytopenia D69.6 DVT prophylaxis Z29.9 (1) Closed right ankle fracture Encounter type: initial encounter Qualified Code(s): S82.891A - Other fracture of right lower leg, initial encounter for closed fracture (2) Cirrhosis Ascites presence: without ascites Hepatic cirrhosis type: alcoholic cirrhosis Qualified Code(s): K70.30 - Alcoholic cirrhosis of liver without ascites
[2020-05-21] MEDS: ceFAZolin 1000MG 1,000 MG/7.5 ML SYR IV SCH (18:06)
[2020-05-21] MEDS: ASCORBIC ACID 500 MG TAB PO SCH (18:07)
[2020-05-21] MEDS: DOCUSATE SODIUM 100 MG CAP PO SCH (21:12)
[2020-05-21] MEDS: SENNA 8.6 MG TAB PO SCH (21:12)
[2020-05-21] MEDS: DOCUSATE SODIUM/SENNA 50/8.6MG TAB PO SCH (21:13)
[2020-05-21] MEDS: SERTRALINE HCL 100 MG TABLET PO SCH (21:13)
[2020-05-21] MEDS: ASPIRIN 81 MG ECTAB PO SCH (21:13)
[2020-05-22] MEDS: SODIUM CHLORIDE 0.9% 1000ML 1,000 ML IV SCH (00:08)
[2020-05-22] MEDS: ceFAZolin 1000MG 1,000 MG/7.5 ML SYR IV SCH (01:01)
[2020-05-22] MEDS: KETOROLAC TROMETHAMINE 15 MG/ML VIAL IV SCH ×5 (01:02→23:40)
[2020-05-22] MEDS: ACETAMINOPHEN 500 MG TAB PO SCH ×3 (06:32→21:10)
[2020-05-22] MEDS: LEVOTHYROXINE SODIUM 25 MCG TABLET PO SCH (06:33)
[2020-05-22 07:28] LABS: Hematocrit (blood only) 24.6 % (37-47); Hemoglobin 7.9 g/dL (12.0-16.0); Mean Corpuscular Hemoglobin 31.9 pg (25-34); Mean Corpuscular Hgb Conc 32.1 g/dL (32-36); Mean Corpuscular Volume 99.2 fL (80-100); RDW Coefficient of Variation 17.5 % (11.5-14.5); RDW Standard Deviation 62.8 fL (36.4-46.3); Red Blood Count 2.48 M/uL (4.2-5.4); White Blood Count 7.67 K/uL (4.8-10.8)
[2020-05-22 07:50] LABS: Mean Platelet Volume 10.4 fL (7.4-10.4); Platelet Count 99 K/uL (130-400)
[2020-05-22 07:52] LABS: INR 1.5 (0.9-1.1); Prothrombin Time 15.4 Seconds (9.0-12.0)
[2020-05-22] MEDS: SPIRONOLACTONE 25 MG TAB PO SCH (08:05)
[2020-05-22] MEDS: ASCORBIC ACID 500 MG TAB PO SCH ×2 (08:06→18:37)
[2020-05-22] MEDS: DOCUSATE SODIUM 100 MG CAP PO SCH ×2 (08:06→20:30)
[2020-05-22] MEDS: LACTULOSE SYRUP 20 GM/30 ML UDC PO SCH (08:07)
[2020-05-22] MEDS: ASPIRIN 81 MG ECTAB PO SCH ×2 (08:07→20:36)
[2020-05-22] MEDS: PROPRANOLOL HCL 10 MG TAB PO SCH ×3 (08:07→20:36)
[2020-05-22 08:08] LABS: BUN Creatinine Ratio 15.7 (10-20); Calcium 7.9 mg/dl (8.5-10.1); Creatinine Clr Calc Pharmacy 32.9 ml/min; Est GFR (African American) 30.4; Est GFR (Non-African American) 26.2; Potassium 4.2 mmol/L (3.5-5.1)
[2020-05-22] MEDS: FOLIC ACID 1 MG TAB PO SCH (08:08)
[2020-05-22] MEDS: FERROUS SULFATE 325 MG TAB PO SCH (08:08)
[2020-05-22] MEDS: MULTIVITAMIN TAB PO SCH (08:09)
[2020-05-22] MEDS: PANTOprazole 40 MG TAB PO SCH (08:09)
[2020-05-22] MEDS ORDERED: FOLIC ACID 1 MG TAB PO SCH (09:00)
--- NOTE | 2020-05-22 09:05 | Progress Notes ---
DATE: 05/22/2020 SUBJECTIVE: A 59-year-old white female postop day 1 from ORIF of right trimalleolar ankle fracture subluxation. She is doing pretty well. She says her ankle feels much better. No other complaints. No chest pain or shortness of breath. Not feeling dizzy or lightheaded. OBJECTIVE: VITAL SIGNS: Temperature 36.8. Vital signs stable. GENERAL: Shows a pleasant, middle-aged female. She is lying in bed, looks comfortable. EXTREMITIES: Examination of the right leg reveals the splint to be in place. She is clean, dry without signs of drainage. She can dorsiflex and plantarflex her toes appropriately. She is neurologically intact. LABORATORY DATA: Hemoglobin this morning 7.9. Hematocrit 24.6. INR is 1.5. Electrolytes are pending. ASSESSMENT: A 59-year-old white female with history of significant alcoholism and cirrhosis along with a smoking history postoperative day 1 from ORIF of right trimalleolar ankle fracture subluxation. Her ankle is doing well. She is chronically anemic, but her anemia is stable. She is asymptomatic. INR is slightly elevated due to her liver disease, likely. PLAN: 1. DVT prophylaxis including thigh-high TEDs, SCDs, and just a baby aspirin twice a day. 2. PT/OT. She is nonweightbearing on this right leg for 2 weeks. 3. Pain control, doing okay with current pain regimen. 4. Medical management as per the medicine service. 5. Disposition. She lives by herself. I think she is going to need a rehab or care home facility stay. I think it is going to be hard for her to take care of herself for these next 2 weeks. She is going to be nonweightbearing for 2 weeks. In 2 weeks, we can likely get her into a weightbearing cast and she would more likely be able to be at home at that time with some home health.
[2020-05-22] MEDS: LACTATED RINGER'S 1,000 ML IV SCH ×2 (09:48→21:07)
[2020-05-22] MEDS ORDERED: GABAPENTIN 1200MG ALCOHOL WITHDRAWAL LOAD PO STA (10:52)
[2020-05-22] MEDS: THIAMINE HCL 100 MG TAB PO SCH (11:17)
[2020-05-22] MEDS ORDERED: GABAPENTIN 600 MG TAB PO ONE (12:00)
--- NOTE | 2020-05-22 13:10 | Hospitalist Progress Note ---
Date of Service May 22, 2020 Assessment & Plan (1) Closed right ankle fracture: Patient has a bimalleolar vs trimalleolar fracture right ankle which was sustained at least 1 day prior surgical correction on 05/21/2020 patient will be utilized for preoperative antibiotics based upon previous preoperative orthopedic order sets (2) Cirrhosis: Cirrhosis due to alcoholism has been without drinking alcohol for some time patient reportedly was in [facility] for hepatic encephalopathy in January. She reportedly has not had a paracentesis for 9 months. Continues on lactulose and holding Aldactone. With recent acute kidney injury (3) Anemia: Patient is a normocytic anemia she previously was prescribed iron is unclear whether she may have GI blood loss sources such as varices or GAVE patient (4) Elevated bilirubin: Patient is obviously jaundiced patient's family states she is always jaundice unclear whether the bilirubin at 3 is her normal range or not. attempt to get records from [facility] where she was received most of her previous care (5) Thrombocytopenia: Patient is thrombocytopenia is most likely related to her her cirrhosis we will follow this in the morning (6) Alcohol withdrawal: Patient may be having some visual hallucinations she has no tachycardia or tremor will start gabapentin protocol on her (7) Acute kidney injury: Patient with postoperative acute kidney injury this likely might be from intraoperative volume losses. Patient be hydrated with fluids she will have her Aldactone held and will follow her renal function (8) DVT prophylaxis: Surgery is chosen aspirin twice daily for DVT prevention Admission and Anticipated Discharge Date Admission Date: May 20, 2020 Subjective Patient is seen she looks comfortable she may be having some visual hallucinations. Is unclear her last drink she told me 1 month she told the nurses 2 weeks. She certainly is not having any persistent tremor or physiological response but she does having these hallucinations therefore we will start gabapentin withdrawal protocol on her Her foot pain is controlled well will have PT OT evaluation to determine if she needs rehab post hospital stay Review of Systems Review of Systems: Mild distress and fatigue no headache, blurry or double vision no speech or swallowing issues no chest pain, pressure or palpitations no shortness of breath, cough or wheezes no abdominal pain, nausea or vomiting, mild distention and expected diarrhea no dysuria, hematuria or frequency Right foot is wrapped she has good distal sensation no back pain, CVA tenderness or radicular pain no bruising, bleeding or rashes no focal signs of weakness or numbness or altered sensation no complaints of anxiety or depression. Physical Exam Physical Exam: The patient appeared well nourished and normally developed. Vital signs as documented. Head exam is normocephalic atraumatic + scleral icterus Neck is without JVD, thyromegaly, or carotid bruits. Lungs are clear to auscultation, no focal loss of breath sounds Cardiac exam, Rhythm is regular.. No murmurs, rubs or gallops. Abdominal exam reveals normal bowel sounds, soft mildly distension, hepatomegally Extremities right lower extremity is in a brace she has good distal sensation to gross examination Neurologic exam is alert and oriented, slightly confused no focal loss of strength or sensation Skin is without bruises or rashes, mildly jaundiced Psychologically is without concerns for anxiety or depression. She is of slow mentation which she was when she was presented she is stating she sees birds out on the hospital roof which there are none at this time Results & Data Results & Data ([facility]) Vital Signs (Past 12 Hours) Vital Signs Temp Pulse Resp BP Pulse Ox 05/22/20 11:08 97.9 F 76 16 96/61 L 100 05/22/20 07:40 98.2 F 68 18 108/68 97 05/22/20 04:00 98.2 F 78 17 94/57 L 95 PG Care Time/CCT Total # of Minutes Spent Total Time Spent with Patient: Total time spent is greater than 50% in coordination of care (as documented) at patient's floor/unit and/or counseling patient: Coding Level of Care Code 36504 Subseq Hosp Care Lvl 3 Diagnoses Closed right ankle fracture S82.891A Encounter type: initial encounter Cirrhosis K70.30 Ascites presence: without ascites Hepatic cirrhosis type: alcoholic cirrhosis Anemia D64.9 Elevated bilirubin R17 Thrombocytopenia D69.6 Alcohol withdrawal F10.239 Acute kidney injury N17.9 DVT prophylaxis Z29.9 (1) Closed right ankle fracture Encounter type: initial encounter Qualified Code(s): S82.891A - Other fracture of right lower leg, initial encounter for closed fracture (2) Cirrhosis Ascites presence: without ascites Hepatic cirrhosis type: alcoholic cirrhosis Qualified Code(s): K70.30 - Alcoholic cirrhosis of liver without ascites
[2020-05-22] MEDS: GABAPENTIN 600 MG TAB PO SCH ×2 (18:38→23:34)
[2020-05-22] MEDS: DOCUSATE SODIUM/SENNA 50/8.6MG TAB PO SCH (20:30)
[2020-05-22] MEDS: SENNA 8.6 MG TAB PO SCH (20:30)
[2020-05-22] MEDS: SERTRALINE HCL 100 MG TABLET PO SCH (20:37)
[2020-05-22] MEDS ORDERED: LACTATED RINGER'S 1,000 ML IV ONE (21:01)
[2020-05-23] MEDS: LEVOTHYROXINE SODIUM 25 MCG TABLET PO SCH (05:26)
[2020-05-23] MEDS: ACETAMINOPHEN 500 MG TAB PO SCH ×3 (05:26→22:53)
[2020-05-23 06:37] LABS: Hematocrit (blood only) 25.5 % (37-47); Hemoglobin 8.2 g/dL (12.0-16.0); Mean Corpuscular Hgb Conc 32.2 g/dL (32-36); Mean Corpuscular Volume 99.6 fL (80-100); Mean Platelet Volume 11.1 fL (7.4-10.4); Platelet Count 105 K/uL (130-400); RDW Coefficient of Variation 17.6 % (11.5-14.5); RDW Standard Deviation 63.1 fL (36.4-46.3); Red Blood Count 2.56 M/uL (4.2-5.4); White Blood Count 4.91 K/uL (4.8-10.8)
[2020-05-23 06:56] LABS: INR 1.5 (0.9-1.1); Prothrombin Time 15.7 Seconds (9.0-12.0)
[2020-05-23 07:12] LABS: BUN Creatinine Ratio 14.9 (10-20); Creatinine Clr Calc Pharmacy 24.9 ml/min; Est GFR (African American) 21.6; Est GFR (Non-African American) 18.7; Potassium 4.3 mmol/L (3.5-5.1)
[2020-05-23] MEDS: DOCUSATE SODIUM 100 MG CAP PO SCH ×2 (09:03→20:10)
[2020-05-23] MEDS: PROPRANOLOL HCL 10 MG TAB PO SCH (09:13)
[2020-05-23] MEDS: ASPIRIN 81 MG ECTAB PO SCH ×2 (09:14→20:11)
[2020-05-23] MEDS: PANTOprazole 40 MG TAB PO SCH (09:14)
[2020-05-23] MEDS: MULTIVITAMIN TAB PO SCH (09:14)
[2020-05-23] MEDS: LACTULOSE SYRUP 20 GM/30 ML UDC PO SCH (09:14)
[2020-05-23] MEDS: FOLIC ACID 1 MG TAB PO SCH (09:15)
[2020-05-23] MEDS: KETOROLAC TROMETHAMINE 15 MG/ML VIAL IV SCH (09:15)
[2020-05-23] MEDS: THIAMINE HCL 100 MG TAB PO SCH (09:15)
[2020-05-23] MEDS: FERROUS SULFATE 325 MG TAB PO SCH (09:15)
[2020-05-23] MEDS: ASCORBIC ACID 500 MG TAB PO SCH ×2 (09:16→16:52)
[2020-05-23] MEDS: GABAPENTIN 600 MG TAB PO SCH ×3 (09:16→23:10)
--- NOTE | 2020-05-23 09:20 | Progress Notes ---
DATE: 05/23/2020 SUBJECTIVE: A 59-year-old white female postop day 2 from ORIF of right trimalleolar ankle fracture. She is doing well this morning. Denies any significant pain. No chest pain or shortness of breath. Not feeling dizzy or lightheaded. OBJECTIVE: VITAL SIGNS: Temperature 36.4. Vital signs stable. GENERAL: Shows a pleasant, middle-aged female. She is lying in bed, looks comfortable. EXTREMITIES: Examination of the right leg reveals the dressing to be clean, dry and intact. There is no drainage. She can dorsiflex and plantarflex her toes appropriately. LABORATORY DATA: Hemoglobin 8.2. Hematocrit 25.5. INR 1.5. Electrolytes are relatively stable. Creatinine is a little bit elevated at 2.70. ASSESSMENT: A 59-year-old white female postop day 2 from ORIF of a right ankle fracture, doing pretty well. Her pain is controlled. Her creatinine has bumped up a little bit, likely related to fluid issues. Hemoglobin is stable. PLAN: 1. DVT prophylaxis including thigh-high TEDs, SCDs, and baby aspirin twice a day. 2. PT/OT. She can weightbear as tolerated to right lower extremity. 3. Pain control, doing well with current pain regimen. 4. Medical management as per the medicine service. 5. Elevated renal function. This likely needs just some fluid. Encourage p.o. intake. She will need a creatinine followed. 6. Disposition: She is orthopedically okay for discharge any time medically stable. I need to see her back 2 weeks out from surgery date. She just needs to leave the splint clean, dry and intact for the next 2 weeks. No weightbearing right leg. Any questions can be directed to me at [phone].
[2020-05-23] MEDS: LACTATED RINGER'S 1,000 ML IV SCH (11:10)
[2020-05-23] MEDS ORDERED: ALBUMIN 25% 50 ML IV ONE (15:14)
[2020-05-23 15:22] LABS: BUN Creatinine Ratio 13.5 (10-20); Calcium 7.7 mg/dl (8.5-10.1); Creatinine Clr Calc Pharmacy 22.9 ml/min; Est GFR (African American) 19.5; Est GFR (Non-African American) 16.8; Potassium 4.1 mmol/L (3.5-5.1)
--- NOTE | 2020-05-23 16:01 | Orthopedic Consultation ---
Date of Consultation May 23, 2020 History of Present Illness Attending Physician: Vinh Schneider MD Allergies Allergy/AdvReac Type Severity Reaction Status Date / Time No Known Allergies Allergy Unverified 05/20/20 16:10 Home Medications Home Medications Medication Instructions Recorded Confirmed Type ferrous sulfate 325 mg PO QAM 05/20/20 05/20/20 History folic acid 1 mg PO QAM 05/20/20 05/20/20 History lactulose 20 g PO DAILY 05/20/20 05/20/20 History levothyroxine 25 mcg PO DAILY 05/20/20 05/20/20 History pantoprazole 40 mg PO QAM 05/20/20 05/20/20 History propranolol 40 mg PO DAILY 05/20/20 05/20/20 History sertraline [Zoloft] 100 mg PO QPM 05/20/20 05/20/20 History spironolactone 50 mg PO BID 05/20/20 05/20/20 History Patient History Medical History Chronic kidney disease Cirrhosis of liver History of alcohol abuse Hypothyroidism Incontinence Social History Smoking Status: Current every day smoker Cigarettes Per Day: 3-4; Second Hand Exposure: No; Do You Dip or Chew Tobacco: No; Tobacco Cessation Education Requested by Patient: No Hx Alcohol Use: Yes Alcohol type: beer Hx Substance Use: No Preferred Language: Croatian Communication Ability: Effective Assistant Professor Of Biochemistry Required: No Beliefs That Will Affect Care: None Current Living Situation: Alone Other Information That Helps Us Care for You: No Feels Safe at Home: Yes Safety Concerns: Feels Safe At This Time Assistive Devices: Walker Review of Systems Review of Systems: All systems reviewed & are unremarkable except as noted in HPI & below Physical Exam Musculoskeletal: no cyanosis or clubbing, extremities motor strength 5/5 Spine: + loss of normal cervical lordosis Results & Data ([facility]) Vital Signs (Past 12 Hours) Vital Signs Temp Pulse Pulse Resp BP BP Pulse Ox 05/23/20 15:05 36.5 C 78 16 90/55 L 98 05/23/20 07:03 36.4 C L 68 19 95/60 L 100 PG Care Time/CCT Total # of Minutes Spent Total Time Spent with Patient: Total time spent is greater than 50% in coordination of care (as documented) at patient's floor/unit and/or counseling patient: Coding
[2020-05-23] MEDS ORDERED: MIDODRINE HCL 2.5 MG TAB PO SCH (17:00)
--- NOTE | 2020-05-23 17:03 | Hospitalist Progress Note ---
Date of Service May 23, 2020 Assessment & Plan (1) Acute kidney injury: Cr rising, up to 2.7 and then 2.9 today likely from volume losses, hypotension perioperatively and post operatively stop IV fluids as she is euvolemic to hypervolemic BP low normal, start on Midodrine 5mg TID, Albumin infusion now electrolytes stable check UA to look for signs of ATN which is suspected another possibility in hepatorenal syndrome, see above with albumin and Midodrine check BMP in the morning, continue perea for close monitoring of UO (2) Closed right ankle fracture: Patient has a bimalleolar vs trimalleolar fracture right ankle which was sustained at least 1 day prior to admission she tripped in her kitchen, rolled the ankle surgical correction on 05/21/2020 NWB on right ankle, aspirin 81mg BID for DVT prophylaxis clear for d/c from orthopedic standpoint plan for rehab needs to stay for HUMBERTO (3) Cirrhosis: 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 She reportedly has not had a paracentesis for 9 months. Continues on lactulose and holding Aldactone due to HUMBERTO minimal ascites on exam mentating clearly today, no signs of encephalopathy (4) Anemia: Patient is a normocytic anemia she previously was prescribed iron is unclear whether she may have GI blood loss sources such as varices or GAVE patient Hb is low at 8.2 but stable repeat tomorrow (5) Elevated bilirubin: Patient is obviously jaundiced patient's family states she is always jaundice unclear whether the bilirubin at 3 is her normal range or not. attempt to get records from [facility] where she was received most of her previous care (6) Thrombocytopenia: Patient is thrombocytopenia is most likely related to her her cirrhosis we will follow (7) Alcohol withdrawal: Patient may be having some visual hallucinations she has no tachycardia or tremor continue Gabapentin taper, tolerating well (8) DVT prophylaxis: Surgery is chosen aspirin twice daily for DVT prevention Admission and Anticipated Discharge Date Admission Date: May 20, 2020 Subjective patient c/o increased abdominal bloating she kept asking about paracentesis, says she has had it three times at [place] in the past discussed that there was no obvious indication right now reviewed chart reviewed labs, Cr rising up to 2.7 this AM, repeat this afternoon 2.9 this rise was despite adequate IV fluids, she admits to drinking a lot of water requested JEFFREY RN said that she made no urine via perea despite flushing catheter, she placed a new perea she is recovering from ankle surgery, minimal pain, clear for discharge from orthopedic standpoint Review of Systems Review of Systems: All systems reviewed & are unremarkable except as noted in Subjective Constitutional: + weakness; no fever Respiratory: no cough and no dyspnea Cardiovascular: no chest pain and no edema Gastrointestinal: + bloating and + diarrhea/loose stools; no abdominal pain, no nausea, no vomiting and no constipation Musculoskeletal: + joint pain (right ankle) Physical Exam Constitutional: WD/WN, vitals as above Eyes: PERRL, conjunctivae normal, anicteric sclerae ENMT: external ear and nose normal, oropharynx normal Neck: trachea midline, no thyromegaly Respiratory: normal respiratory effort, lungs clear to auscultation Cardiovascular: RRR, no murmur, no edema Gastrointestinal (Abdomen): Inspection/Auscultation: + abdomen distended (mild) and normal bowel sounds Percussion/Palpation: abdomen soft and + tympanic to percussion; abdomen nontender, no guarding, abdomen not rigid and no ascites Musculoskeletal: no cyanosis or clubbing, extremities motor strength 5/5 Ankle: + ankle abnormal to inspection (right ankle in cast) Skin: no rashes, warm and dry Neurologic: patellar DTR's 2+ bilat, sensation intact and PERRL, EOMI, accommodation nl, no face palsy, no dysarthria Psychiatric: A+Ox3, euthymic affect Lymphatic: no cervical or axillary lymphadenopathy Results & Data Results & Data ([facility]) Vital Signs (Past 12 Hours) Vital Signs Temp Pulse Pulse Resp BP BP Pulse Ox 05/23/20 16:47 36.4 C L 76 16 94/57 L 98 05/23/20 15:05 36.5 C 78 16 90/55 L 98 05/23/20 07:03 36.4 C L 68 19 95/60 L 100 Laboratory Results Laboratory Results - last 24 hr 05/23/20 05/23/20 05/23/20 06:06 06:06 06:06 WBC 4.91 RBC 2.56 L Hgb 8.2 L Hct 25.5 L MCV 99.6 MCH 32.0 MCHC 32.2 RDW Std Deviation 63.1 H RDW Coeff of Lam 17.6 H Plt Count 105 L MPV 11.1 H PT 15.7 H INR 1.5 H Sodium 138 Potassium 4.3 Chloride 108 H Carbon Dioxide 23 Anion Gap 8.0 BUN 40 H Creatinine 2.70 H D Est Cr Clr Drug Dosing 24.9 Est GFR ( Amer) 21.6 Est GFR (Non-Af Amer) 18.7 BUN/Creatinine Ratio 14.9 Glucose 86 Calcium 8.0 L Iron 103 TIBC 198 L Urine Color Urine Appearance Urine pH Ur Specific [place] Urine Protein Urine Glucose (UA) Urine Ketones Urine Blood Urine Nitrite Urine Bilirubin Urine Urobilinogen Ur Leukocyte Esterase 05/23/20 05/23/20 14:45 22:09 WBC RBC Hgb Hct MCV MCH MCHC RDW Std Deviation RDW Coeff of Lam Plt Count MPV PT INR Sodium 134 L Potassium 4.1 Chloride 105 Carbon Dioxide 21 Anion Gap 8.0 BUN 40 H Creatinine 2.94 H Est Cr Clr Drug Dosing 22.9 Est GFR ( Amer) 19.5 Est GFR (Non-Af Amer) 16.8 BUN/Creatinine Ratio 13.5 Glucose 128 H Calcium 7.7 L Iron TIBC Urine Color Pending Urine Appearance Pending Urine pH Pending Ur Specific [place] Pending Urine Protein Pending Urine Glucose (UA) Pending Urine Ketones Pending Urine Blood Pending Urine Nitrite Pending Urine Bilirubin Pending Urine Urobilinogen Pending Ur Leukocyte Esterase Pending Medications Administered Current Inpatient Medications Acetaminophen (Acetaminophen 500 Mg Tab) 1,000 mg PO Q8 [facility] Stop: 06/20/20 13:59 Last Admin: 05/23/20 13:04 Dose: 1,000 mg Documented by: Al Hydrox/Mg Hydrox/Simethicone (Aluminum/Magnesium Susp 30 Ml Udc) 15 ml PO Q4H PRN PRN Reason: Heartburn Stop: 06/20/20 12:35 Ascorbic Acid (Ascorbic Acid 500 Mg Tab) 500 mg PO BIDM [facility] Stop: 06/20/20 16:59 Last Admin: 05/23/20 16:52 Dose: 500 mg Documented by: Aspirin (Aspirin 81 Mg Ectab) 81 mg PO BID [facility] Stop: 06/20/20 20:59 Last Admin: 05/23/20 20:11 Dose: 81 mg Documented by: Bisacodyl (Bisacodyl 10 Mg Supp) 10 mg NM DAILY PRN PRN Reason: Constipation Stop: 06/20/20 12:35 Diphenhydramine HCl (Diphenhydramine Hcl 25 Mg Cap) 25 mg PO Q8H PRN PRN Reason: Itching Stop: 06/20/20 12:35 Docusate Sodium (Docusate Sodium 100 Mg Cap) 100 mg PO BID RERE Stop: 06/20/20 20:59 Last Admin: 05/23/20 20:10 Dose: Not Given Documented by: Ferrous Sulfate (Ferrous Sulfate 325 Mg Tab) 325 mg PO QDB RERE Stop: 06/21/20 07:29 Last Admin: 05/23/20 09:15 Dose: 325 mg Documented by: Folic Acid (Folic Acid 1 Mg Tab) 1 mg PO QAM RERE Stop: 06/20/20 08:59 Last Admin: 05/23/20 09:15 Dose: 1 mg Documented by: Gabapentin (Gabapentin 600 Mg Tab) 600 mg PO Q8H RERE Stop: 05/24/20 00:01 Last Admin: 05/23/20 16:52 Dose: 600 mg Documented by: Gabapentin (Gabapentin 600 Mg Tab) 600 mg PO Q12H RERE Stop: 05/25/20 00:01 Gabapentin (Gabapentin 600 Mg Tab) 600 mg PO Q24H [facility] Stop: 05/25/20 22:01 Hydromorphone HCl (Hydromorphone Inj 0.5 Mg/0.5 Ml Syr) 0.25 - 0.5 mg IV Q20M PRN PRN Reason: Moderate/Severe Pain Stop: 06/03/20 18:58 Last Admin: 05/21/20 02:38 Dose: 0.5 mg Documented by: Hydromorphone HCl (Hydromorphone Inj 0.5 Mg/0.5 Ml Syr) 0.5 mg IV Q4H PRN PRN Reason: Pain or Pre PT Stop: 06/04/20 12:35 Influenza Virus Vaccine Quadrival (Influenza Virus Quad Vaccine 0.5 Ml Syr) 0.5 ml IM .ONCE ONE Stop: 05/27/20 09:01 Lactulose (Lactulose Syrup 20 Gm/30 Ml Udc) 20 gm PO DAILY RERE Stop: 06/20/20 08:59 Last Admin: 05/23/20 09:14 Dose: 20 gm Documented by: Levothyroxine Sodium (Levothyroxine Sodium 25 Mcg Tablet) 25 mcg PO DAILYBB [facility] Stop: 06/20/20 06:29 Last Admin: 05/23/20 05:26 Dose: 25 mcg Documented by: Magnesium Hydroxide (Magnesium Hydroxide Susp 30 Ml Udc) 30 ml PO DAILY PRN PRN Reason: Constipation Stop: 06/19/20 18:58 Magnesium Hydroxide (Magnesium Hydroxide Susp 30 Ml Udc) 30 ml PO Q6H PRN PRN Reason: Constipation Stop: 06/20/20 12:35 Metoclopramide HCl (Metoclopramide Hcl Inj 5 Mg/Ml 2 Ml Vial) 10 mg IV Q6H PRN PRN Reason: Nausea And Vomiting Stop: 06/20/20 12:35 Midodrine (Midodrine Hcl 2.5 Mg Tab) 5 mg PO TID@0800,1200,1700 [facility] Stop: 06/22/20 16:59 Last Admin: 05/23/20 16:52 Dose: 5 mg Documented by: Multivitamins (Multivitamin Tab) 1 tab PO QAM [facility] Stop: 06/21/20 08:59 Last Admin: 05/23/20 09:14 Dose: 1 tab Documented by: Naloxone HCl (Naloxone Hcl 0.4 Mg/1 Ml Vial/Carp) 0.1 mg IV UD PRN PRN Reason: Opiate Overdose Stop: 06/19/20 18:58 Naloxone HCl (Naloxone Hcl 0.4 Mg/1 Ml Vial/Carp) 0.1 mg IV Q5M PRN PRN Reason: Oversedation/Resp Depression Stop: 06/20/20 12:35 Ondansetron HCl (Ondansetron Inj 2 Mg/Ml 2 Ml Vial) 4 mg IV Q6H PRN PRN Reason: Nausea And Vomiting Stop: 06/19/20 18:58 Last Admin: 05/21/20 05:31 Dose: 4 mg Documented by: Ondansetron HCl (Ondansetron Inj 2 Mg/Ml 2 Ml Vial) 4 mg IV Q6H PRN PRN Reason: Nausea And Vomiting Stop: 06/20/20 12:35 Oxycodone HCl (Oxycodone Hcl Ir 5 Mg Tab (Immediate Release)) 5 mg PO Q4H PRN PRN Reason: MODERATE Pain (Scale 4,5,6) Stop: 06/03/20 18:58 Last Admin: 05/20/20 21:44 Dose: 5 mg Documented by: Pantoprazole Sodium (Pantoprazole 40 Mg Tab) 40 mg PO QAM [facility] Stop: 06/20/20 08:59 Last Admin: 05/23/20 09:14 Dose: 40 mg Documented by: Polyethylene Glycol (Polyethylene (Miralax) 17 Gm Pack) 17 gm PO DAILY PRN PRN Reason: Constipation Stop: 06/19/20 18:58 Propranolol HCl (Propranolol Hcl 10 Mg Tab) 10 mg PO TID RERE Stop: 06/19/20 20:59 Last Admin: 05/23/20 09:13 Dose: Not Given Documented by: Senna/Docusate Sodium (Docusate Sodium/Senna 50/8.6mg Tab) 2 tab PO HS [facility] Stop: 06/19/20 20:59 Last Admin: 05/23/20 20:10 Dose: Not Given Documented by: Sennosides (Senna 8.6 Mg Tab) 17.2 mg PO HS [facility] Stop: 06/20/20 20:59 Last Admin: 05/23/20 20:10 Dose: Not Given Documented by: Sertraline HCl (Sertraline Hcl 100 Mg Tablet) 100 mg PO QPM RERE Stop: 06/19/20 20:59 Last Admin: 05/23/20 20:11 Dose: 100 mg Documented by: Spironolactone (Spironolactone 25 Mg Tab) 50 mg PO BID RERE Stop: 06/19/20 20:59 Last Admin: 05/22/20 08:05 Dose: 50 mg Documented by: Thiamine HCl (Thiamine Hcl 100 Mg Tab) 100 mg PO QAM RERE Stop: 06/21/20 11:59 Last Admin: 05/23/20 09:15 Dose: 100 mg Documented by: PG Care Time/CCT Total # of Minutes Spent Total Time Spent: 32 Total Time Spent with Patient: Total time spent is greater than 50% in coordination of care (as documented) at patient's floor/unit and/or counseling patient: Coding Level of Care Code 25519 Subseq Hosp Care Lvl 3 Diagnoses Acute kidney injury N17.9 Closed right ankle fracture S82.891A Encounter type: initial encounter Cirrhosis K70.30 Ascites presence: without ascites Hepatic cirrhosis type: alcoholic cirrhosis Anemia D64.9 Elevated bilirubin R17 Thrombocytopenia D69.6 Alcohol withdrawal F10.239 DVT prophylaxis Z29.9 (1) Cirrhosis Ascites presence: without ascites Hepatic cirrhosis type: alcoholic cirrhosis Qualified Code(s): K70.30 - Alcoholic cirrhosis of liver without ascites (2) Closed right ankle fracture Encounter type: initial encounter Qualified Code(s): S82.891A - Other fracture of right lower leg, initial encounter for closed fracture
[2020-05-23] MEDS: SENNA 8.6 MG TAB PO SCH (20:10)
[2020-05-23] MEDS: DOCUSATE SODIUM/SENNA 50/8.6MG TAB PO SCH (20:10)
[2020-05-23] MEDS: SERTRALINE HCL 100 MG TABLET PO SCH (20:11)
[2020-05-23 22:27] LABS: Appearance Urine Cloudy (Clear); Bacteria Urine Automated Negative (Negative); Blood Urine 3+ (Negative); Color Urine Dark Yellow; Epithelial Cell Urine Auto >30 /lpf (0-5); Glucose Urine UA Negative (Negative); Ketones Urine Trace (Negative); Leukocyte Esterase Urine 1+ (Negative); Nitrite Urine Negative (Negative); Protein Urine 1+ (Negative); RBC Urine Automated >30 /hpf (0-4); Specific Gravity Urine 1.024 (1.000-1.030); Urobilinogen Urine Negative (Negative)
[2020-05-23 22:30] LABS: Bilirubin Urine Negative (Negative); Ictotest Urine Negative (Negative)
[2020-05-23 22:59] LABS: Amorphous Sediment Urine Present (None Prsent); Cast Urine Automated >30 /lpf (0-5)
[2020-05-24] MEDS: LEVOTHYROXINE SODIUM 25 MCG TABLET PO SCH (05:47)
[2020-05-24] MEDS: ACETAMINOPHEN 500 MG TAB PO SCH ×3 (05:47→22:35)
[2020-05-24 06:46] LABS: Hematocrit (blood only) 24.5 % (37-47); Mean Corpuscular Hemoglobin 32.3 pg (25-34); Mean Corpuscular Hgb Conc 32.7 g/dL (32-36); Mean Corpuscular Volume 98.8 fL (80-100); Nucleated RBC # (auto) 0.04 K/uL (0-0); Nucleated RBC % (auto) 0.9 %; RDW Coefficient of Variation 17.5 % (11.5-14.5); RDW Standard Deviation 61.9 fL (36.4-46.3); Red Blood Count 2.48 M/uL (4.2-5.4); White Blood Count 4.51 K/uL (4.8-10.8)
[2020-05-24 07:12] LABS: BUN Creatinine Ratio 15.2 (10-20); Calcium 7.8 mg/dl (8.5-10.1); Creatinine Clr Calc Pharmacy 21.4 ml/min; Est GFR (Non-African American) 15.6; Potassium 4.7 mmol/L (3.5-5.1)
[2020-05-24 07:16] LABS: Mean Platelet Volume 10.4 fL (7.4-10.4); Platelet Count 96 K/uL (130-400)
[2020-05-24] MEDS ORDERED: ALBUMIN 25% 50 ML IV ONE (07:52)
[2020-05-24] MEDS: THIAMINE HCL 100 MG TAB PO SCH (08:49)
[2020-05-24] MEDS: PANTOprazole 40 MG TAB PO SCH (08:49)
[2020-05-24] MEDS: MIDODRINE HCL 10 MG TAB PO SCH ×3 (08:49→16:02)
[2020-05-24] MEDS: FOLIC ACID 1 MG TAB PO SCH (08:50)
[2020-05-24] MEDS: FERROUS SULFATE 325 MG TAB PO SCH (08:50)
[2020-05-24] MEDS: ASCORBIC ACID 500 MG TAB PO SCH ×2 (08:50→16:02)
[2020-05-24] MEDS: ASPIRIN 81 MG ECTAB PO SCH (08:50)
[2020-05-24] MEDS: MULTIVITAMIN TAB PO SCH (08:50)
[2020-05-24] MEDS: DOCUSATE SODIUM 100 MG CAP PO SCH ×2 (08:52→22:17)
[2020-05-24] MEDS: LACTULOSE SYRUP 20 GM/30 ML UDC PO SCH (09:47)
--- NOTE | 2020-05-24 10:47 | Nephrology Consultation ---
Date of Consultation May 24, 2020 Assessment & Plan (1) Acute kidney injury: Clinically consistent with ATN and prerenal physiology. Possible underlying HRS. Urine sodium will be updated with monitoring. Relatively oliguric. Volume status appears acceptable but I would favor a continued positive fluid balance. IV albumin 25 grams Q 8 hrs ordered for today. Document strict I/O's. Continue to hold spironolactone. NAGMA associated with HUMBERTO, stool losses. Avoid HCO3 replacement at this time due to HE. Serum sodium slightly low related to stool losses and poor solute intake. Electrolytes otherwise acceptable. Gabapentin reduced to 300 mg daily. Avoid any additional NSAID use. Medications otherwise appropriate for kidney function. Renal US to be obtained. (2) Closed right ankle fracture: POD #3 s/p ORIF (3) Cirrhosis: Unfortunately continues to drink complicating possible txp candidacy. Midodrine and albumin for BP and EAV support. Defer octreotide pending monitoring. Thiamine and folic acid supplements. (4) Anemia: HGB low but stable. History of Present Illness Reason for Consultation: HUMBERTO Requesting Physician: Vinh Schneider MD Attending Physician: Vinh Schneider MD History of Present Illness Mrs. Tasha Mares is a 59-year-old female with alcoholic cirrhosis complicated by ascites and hepatic encephalopathy. She sustained a ankle fracture at home requiring ORIF. Surgery was performed on 05/21/2020 without complications. Unfortunately post-operative HUMBERTO noted. The patient has been relatively oliguric. She has been maintained in a positive fluid balance. Perioperative hypotension noted. This has been managed with the addition of Midodrine. Volume status was restored and IV albumin has been provided subsequently. Tasha is receiving lactulose for hepatic encephalopathy. She had received IV Toradol for pain control this has been subsequently discontinued. She has not received any iodinated contrast. Prior history of acute kidney injury includes an admission to [facility] in January. The patient was admitted with hepatic encephalopathy. This was complicated by HUMBERTO related to prerenal physiology. Baseline creatinine following injury was approximately 1.6 milligram/deciliter. Records from the hospitalization including nephrology consultation reviewed. Tasha has no urinary complaints at this time. She denies any fevers or chills. She is breathing comfortably. She does not have significant ascites. She has not required recent paracentesis. She was out of bed with physical therapy during my assessment. She is a poor historian and slightly confused with details of her medical history. Allergies Allergy/AdvReac Type Severity Reaction Status Date / Time No Known Allergies Allergy Unverified 05/20/20 16:10 Home Medications Home Medications Medication Instructions Recorded Confirmed Type ferrous sulfate 325 mg PO QAM 05/20/20 05/20/20 History folic acid 1 mg PO QAM 05/20/20 05/20/20 History lactulose 20 g PO DAILY 05/20/20 05/20/20 History levothyroxine 25 mcg PO DAILY 05/20/20 05/20/20 History pantoprazole 40 mg PO QAM 05/20/20 05/20/20 History propranolol 40 mg PO DAILY 05/20/20 05/20/20 History sertraline [Zoloft] 100 mg PO QPM 05/20/20 05/20/20 History spironolactone 50 mg PO BID 05/20/20 05/20/20 History Patient History Medical History Chronic kidney disease Cirrhosis of liver History of alcohol abuse Hypothyroidism Incontinence Social History Smoking Status: Current every day smoker Cigarettes Per Day: 3-4; Second Hand Exposure: No; Do You Dip or Chew Tobacco: No; Tobacco Cessation Education Requested by Patient: No Hx Alcohol Use: Yes Alcohol type: beer Hx Substance Use: No Preferred Language: Montserratian Communication Ability: Effective Data Security Administrator Required: No Beliefs That Will Affect Care: None Current Living Situation: Alone Other Information That Helps Us Care for You: No Feels Safe at Home: Yes Safety Concerns: Feels Safe At This Time Assistive Devices: Walker Review of Systems Review of Systems: All systems reviewed & are unremarkable except as noted in HPI & below Constitutional: + fatigue and + weakness; no fever and no chills Neurologic: + confusion Physical Exam Constitutional: well developed; no acute distress Eyes: no scleral abnormality and no corneal abnormality ENMT: Mouth: no oral mucosal abnormality and oral mucous membranes not dry Neck: normal visual inspection and trachea midline Respiratory: normal respiratory effort Auscultation: lungs clear to auscultation bilaterally Cardiovascular: Rate/Rhythm: regular rate Heart Sounds: normal S1 and normal S2 Extremities: no edema Musculoskeletal: Extremities: no cyanosis and no clubbing Skin: normal turgor; no lesions Neurologic: Motor/Sensory: no tremor and no asterixis Psychiatric: Orientation: alert and oriented x 3 Results & Data ([facility]) Vital Signs (Past 12 Hours) Vital Signs Temp Pulse Pulse Resp BP BP Pulse Ox 05/24/20 08:55 36.7 C 74 18 95/61 L 96 05/24/20 08:19 36.7 C 73 18 92/58 L 97 05/24/20 07:31 36.5 C 76 18 96/61 L 96 05/23/20 23:52 36.4 C L 80 16 91/51 L 97 Laboratory Results Laboratory Results - last 24 hr 05/23/20 05/23/20 05/24/20 14:45 22:09 06:26 WBC 4.51 L RBC 2.48 L Hgb 8.0 L Hct 24.5 L MCV 98.8 MCH 32.3 MCHC 32.7 RDW Std Deviation 61.9 H RDW Coeff of Lam 17.5 H Plt Count 96 L MPV 10.4 Absolute Nucleated RBC 0.04 H Nucleated RBC % (auto) 0.9 Sodium 134 L Potassium 4.1 Chloride 105 Carbon Dioxide 21 Anion Gap 8.0 BUN 40 H Creatinine 2.94 H Est Cr Clr Drug Dosing 22.9 Est GFR ( Amer) 19.5 Est GFR (Non-Af Amer) 16.8 BUN/Creatinine Ratio 13.5 Glucose 128 H Calcium 7.7 L Urine Color Dark Yellow Urine Appearance Cloudy A Urine pH 5.0 Ur Specific [place] 1.024 Urine Protein 1+ H Urine Glucose (UA) Negative Urine Ketones Trace H Urine Blood 3+ H Urine Nitrite Negative Urine Bilirubin Negative Urine Urobilinogen Negative Ur Leukocyte Esterase 1+ H Urine WBC (Auto) 10-30 H Urine RBC (Auto) >30 H U Hyaline Cast (Auto) >30 H U Epithel Cells (Auto) >30 H Urine Bacteria (Auto) Negative Ur Renal Epithelial Cell Not Reportable Amorphous Sediment Present A Urine Yeast Budding A 05/24/20 06:26 WBC RBC Hgb Hct MCV MCH MCHC RDW Std Deviation RDW Coeff of Lam Plt Count MPV Absolute Nucleated RBC Nucleated RBC % (auto) Sodium 133 L Potassium 4.7 Chloride 105 Carbon Dioxide 20 L Anion Gap 8.0 BUN 48 H Creatinine 3.14 H Est Cr Clr Drug Dosing 21.4 Est GFR ( Amer) 18.0 Est GFR (Non-Af Amer) 15.6 BUN/Creatinine Ratio 15.2 Glucose 82 Calcium 7.8 L Urine Color Urine Appearance Urine pH Ur Specific [place] Urine Protein Urine Glucose (UA) Urine Ketones Urine Blood Urine Nitrite Urine Bilirubin Urine Urobilinogen Ur Leukocyte Esterase Urine WBC (Auto) Urine RBC (Auto) U Hyaline Cast (Auto) U Epithel Cells (Auto) Urine Bacteria (Auto) Ur Renal Epithelial Cell Amorphous Sediment Urine Yeast PG Care Time/CCT Total # of Minutes Spent Total Time Spent with Patient: Total time spent is greater than 50% in coordination of care (as documented) at patient's floor/unit and/or counseling patient: Coding Level of Care Code 98323 Inpt Consult Level 4 Diagnoses Acute kidney injury N17.9 Closed right ankle fracture S82.891A Encounter type: initial encounter Cirrhosis K70.30 Ascites presence: without ascites Hepatic cirrhosis type: alcoholic cirrhosis Anemia D64.9 (1) Closed right ankle fracture Encounter type: initial encounter Qualified Code(s): S82.891A - Other fracture of right lower leg, initial encounter for closed fracture (2) Cirrhosis Ascites presence: without ascites Hepatic cirrhosis type: alcoholic cirrhosis Qualified Code(s): K70.30 - Alcoholic cirrhosis of liver without ascites
[2020-05-24] MEDS ORDERED: GABAPENTIN 600 MG TAB PO SCH (12:00)
--- NOTE | 2020-05-24 12:13 | Progress Notes ---
DATE: 05/24/2020 SUBJECTIVE: A 59-year-old white female postoperative day #3 from an ORIF of right ankle fracture dislocation. She is doing pretty well. Not having much pain. Her kidney function has deteriorated slowly. OBJECTIVE: VITAL SIGNS: Temperature 36.7. Vital signs stable. GENERAL: Shows a pleasant, middle-aged female. She is lying in bed, looks pretty comfortable. EXTREMITIES: Examination of the right ankle reveals the dressing to be clean, dry and intact. She can dorsiflex and plantarflex her toes appropriately. She is neurologically intact. LABORATORY DATA: Hemoglobin 8.0. Hematocrit 24.5. Electrolytes show a creatinine of 3.14. ASSESSMENT: A 59-year-old white female with a history of significant alcohol use and cirrhosis postop day 3 from ORIF of right ankle fracture. The ankle is doing well. Her hemoglobin is stable. Her creatinine continues to creep upward. PLAN: 1. DVT prophylaxis including thigh-high TEDs, SCDs, and I am going to decrease her aspirin from 1 tablet twice a day to 1 tablet once a day. We can stop this if felt absolutely necessary from the kidney standpoint from the renal team. 2. PT/OT. She is nonweightbearing on the right leg for 2 weeks. 3. Pain control, doing okay with current pain regimen. 4. Medical management as per the medicine service. I believe they are going to consult nephrology due to her elevated creatinine. 5. Disposition: She is orthopedically okay for discharge any time medically stable. I need to see her back somewhere between 2 and 3 weeks postop. She is strictly nonweightbearing until then. The dressing should just stay clean and dry and intact. Any questions can be directed to me at [phone].
--- NOTE | 2020-05-24 12:35 | Hospitalist Progress Note ---
Date of Service May 24, 2020 Assessment & Plan (1) Acute kidney injury: Cr rising, up to 3.14 today likely from volume losses, hypotension perioperatively and post operatively continue to encourage PO intake BP low normal,continue Midodrine 10mg TID, Albumin q8 hours electrolytes stable monitor UO closely, prefer her to be hypervolemic at this time appreciate recommendations from Dr. Simon (2) Closed right ankle fracture: Patient has a bimalleolar vs trimalleolar fracture right ankle which was sustained at least 1 day prior to admission she tripped in her kitchen, rolled the ankle surgical correction on 05/21/2020 NWB on right ankle, aspirin 81mg BID for DVT prophylaxis clear for d/c from orthopedic standpoint plan for rehab needs to stay for HUMBERTO discussed with her today, likely here 2-3 more days (3) Cirrhosis: Cirrhosis due to alcoholism has been without drinking alcohol for some time patient reportedly was in [facility] for hepatic encephalopathy in January. She reportedly has not had a paracentesis for 9 months. Continues on lactulose and holding Aldactone due to HUMBERTO minimal ascites on exam mentating clearly today, no signs of encephalopathy c/o of diarrhea 8-9 times a day, will back off on lactulose dose, goal is 2-3 BM a day (4) Anemia: Patient is a normocytic anemia she previously was prescribed iron is unclear whether she may have GI blood loss sources such as varices or GAVE patient Hb is low at 8.0 but stable repeat tomorrow (5) Elevated bilirubin: Patient is obviously jaundiced patient's family states she is always jaundice unclear whether the bilirubin at 3 is her normal range or not. attempt to get records from [facility] where she was received most of her p revious care (6) Thrombocytopenia: Patient is thrombocytopenia is most likely related to her her cirrhosis we will follow 96 today (7) Alcohol withdrawal: Patient may be having some visual hallucinations she has no tachycardia or tremor continue Gabapentin taper, tolerating well (8) DVT prophylaxis: Surgery is chosen aspirin twice daily for DVT prevention Admission and Anticipated Discharge Date Admission Date: May 20, 2020 Subjective patient doing well today she complains about diarrhea, says she is moving her bowels 8-9 times a day discussed that the goal is 2-3 times a day with Lactulose Cr rising today, > 3 but making some urine appreciate recommendations from Dr. Simon, will utilize albumin and midodrine, encourage her to drink check BMP in the morning discussed with Dr. Schneider, she is stable for discharge from his perspective Review of Systems Review of Systems: All systems reviewed & are unremarkable except as noted in Subjective Respiratory: no cough Cardiovascular: no chest pain and no edema Gastrointestinal: + bloating and + diarrhea/loose stools; no abdominal pain, no nausea and no vomiting Musculoskeletal: + joint pain (right ankle) Physical Exam Constitutional: WD/WN, vitals as above Eyes: PERRL, conjunctivae normal, anicteric sclerae ENMT: external ear and nose normal, oropharynx normal Neck: trachea midline, no thyromegaly Respiratory: normal respiratory effort, lungs clear to auscultation Cardiovascular: RRR, no murmur, no edema Gastrointestinal (Abdomen): Inspection/Auscultation: + abdomen distended (mild) and normal bowel sounds Percussion/Palpation: abdomen soft and + tympanic to percussion; abdomen nontender, no guarding, abdomen not rigid and no ascites Musculoskeletal: no cyanosis or clubbing, extremities motor strength 5/5 Ankle: + ankle abnormal to inspection (right ankle in cast) Skin: no rashes, warm and dry Neurologic: patellar DTR's 2+ bilat, sensation intact and PERRL, EOMI, accommodation nl, no face palsy, no dysarthria Psychiatric: A+Ox3, euthymic affect Lymphatic: no cervical or axillary lymphadenopathy Results & Data Results & Data ([facility]) Vital Signs (Past 12 Hours) Vital Signs Temp Pulse Pulse Resp BP BP Pulse Ox 05/24/20 08:55 36.7 C 74 18 95/61 L 96 05/24/20 08:19 36.7 C 73 18 92/58 L 97 05/24/20 07:31 36.5 C 76 18 96/61 L 96 Laboratory Results Laboratory Results - last 24 hr 05/23/20 05/23/20 05/24/20 14:45 22:09 06:26 WBC 4.51 L RBC 2.48 L Hgb 8.0 L Hct 24.5 L MCV 98.8 MCH 32.3 MCHC 32.7 RDW Std Deviation 61.9 H RDW Coeff of Lam 17.5 H Plt Count 96 L MPV 10.4 Absolute Nucleated RBC 0.04 H Nucleated RBC % (auto) 0.9 Sodium 134 L Potassium 4.1 Chloride 105 Carbon Dioxide 21 Anion Gap 8.0 BUN 40 H Creatinine 2.94 H Est Cr Clr Drug Dosing 22.9 Est GFR ( Amer) 19.5 Est GFR (Non-Af Amer) 16.8 BUN/Creatinine Ratio 13.5 Glucose 128 H Calcium 7.7 L Urine Color Dark Yellow Urine Appearance Cloudy A Urine pH 5.0 Ur Specific [place] 1.024 Urine Protein 1+ H Urine Glucose (UA) Negative Urine Ketones Trace H Urine Blood 3+ H Urine Nitrite Negative Urine Bilirubin Negative Urine Urobilinogen Negative Ur Leukocyte Esterase 1+ H Urine WBC (Auto) 10-30 H Urine RBC (Auto) >30 H U Hyaline Cast (Auto) >30 H U Epithel Cells (Auto) >30 H Urine Bacteria (Auto) Negative Ur Renal Epithelial Cell Not Reportable Amorphous Sediment Present A Urine Yeast Budding A 05/24/20 06:26 WBC RBC Hgb Hct MCV MCH MCHC RDW Std Deviation RDW Coeff of Lam Plt Count MPV Absolute Nucleated RBC Nucleated RBC % (auto) Sodium 133 L Potassium 4.7 Chloride 105 Carbon Dioxide 20 L Anion Gap 8.0 BUN 48 H Creatinine 3.14 H Est Cr Clr Drug Dosing 21.4 Est GFR ( Amer) 18.0 Est GFR (Non-Af Amer) 15.6 BUN/Creatinine Ratio 15.2 Glucose 82 Calcium 7.8 L Urine Color Urine Appearance Urine pH Ur Specific [place] Urine Protein Urine Glucose (UA) Urine Ketones Urine Blood Urine Nitrite Urine Bilirubin Urine Urobilinogen Ur Leukocyte Esterase Urine WBC (Auto) Urine RBC (Auto) U Hyaline Cast (Auto) U Epithel Cells (Auto) Urine Bacteria (Auto) Ur Renal Epithelial Cell Amorphous Sediment Urine Yeast Medications Administered Current Inpatient Medications Acetaminophen (Acetaminophen 500 Mg Tab) 1,000 mg PO Q8 [facility]ERE Stop: 06/20/20 13:59 Last Admin: 05/24/20 05:47 Dose: 1,000 mg Documented by: Al Hydrox/Mg Hydrox/Simethicone (Aluminum/Magnesium Susp 30 Ml Udc) 15 ml PO Q4H PRN PRN Reason: Heartburn Stop: 06/20/20 12:35 Ascorbic Acid (Ascorbic Acid 500 Mg Tab) 500 mg PO BIDM [facility]ERE Stop: 06/20/20 16:59 Last Admin: 05/24/20 08:50 Dose: 500 mg Documented by: Aspirin (Aspirin 81 Mg Ectab) 81 mg PO QAM [facility] Stop: 06/24/20 08:59 Bisacodyl (Bisacodyl 10 Mg Supp) 10 mg [place] DAILY PRN PRN Reason: Constipation Stop: 06/20/20 12:35 Diphenhydramine HCl (Diphenhydramine Hcl 25 Mg Cap) 25 mg PO Q8H PRN PRN Reason: Itching Stop: 06/20/20 12:35 Docusate Sodium (Docusate Sodium 100 Mg Cap) 100 mg PO BID [facility] Stop: 06/20/20 20:59 Last Admin: 05/24/20 08:52 Dose: Not Given Documented by: Ferrous Sulfate (Ferrous Sulfate 325 Mg Tab) 325 mg PO QDB [facility] Stop: 06/21/20 07:29 Last Admin: 05/24/20 08:50 Dose: 325 mg Documented by: Folic Acid (Folic Acid 1 Mg Tab) 1 mg PO QAM [facility] Stop: 06/20/20 08:59 Last Admin: 05/24/20 08:50 Dose: 1 mg Documented by: Gabapentin (Gabapentin 600 Mg Tab) 600 mg PO Q24H [facility] Stop: 05/25/20 22:01 Gabapentin (Gabapentin 300 Mg Cap) 300 mg PO QAM [facility] Stop: 05/26/20 09:01 Hydromorphone HCl (Hydromorphone Inj 0.5 Mg/0.5 Ml Syr) 0.25 - 0.5 mg IV Q20M PRN PRN Reason: Moderate/Severe Pain Stop: 06/03/20 18:58 Last Admin: 05/21/20 02:38 Dose: 0.5 mg Documented by: Hydromorphone HCl (Hydromorphone Inj 0.5 Mg/0.5 Ml Syr) 0.5 mg IV Q4H PRN PRN Reason: Pain or Pre PT Stop: 06/04/20 12:35 Albumin Human (Albumin 25%) 100 mls @ 50 mls/hr IV Q8 [facility] Stop: 05/27/20 13:59 Influenza Virus Vaccine Quadrival (Influenza Virus Quad Vaccine 0.5 Ml Syr) 0.5 ml IM .ONCE ONE Stop: 05/27/20 09:01 Lactulose (Lactulose Syrup 20 Gm/30 Ml Udc) 20 gm PO DAILY [facility] Stop: 06/20/20 08:59 Last Admin: 05/24/20 09:47 Dose: Not Given Documented by: Levothyroxine Sodium (Levothyroxine Sodium 25 Mcg Tablet) 25 mcg PO DAILYBB [facility] Stop: 06/20/20 06:29 Last Admin: 05/24/20 05:47 Dose: 25 mcg Documented by: Magnesium Hydroxide (Magnesium Hydroxide Susp 30 Ml Udc) 30 ml PO DAILY PRN PRN Reason: Constipation Stop: 06/19/20 18:58 Magnesium Hydroxide (Magnesium Hydroxide Susp 30 Ml Udc) 30 ml PO Q6H PRN PRN Reason: Constipation Stop: 06/20/20 12:35 Metoclopramide HCl (Metoclopramide Hcl Inj 5 Mg/Ml 2 Ml Vial) 10 mg IV Q6H PRN PRN Reason: Nausea And Vomiting Stop: 06/20/20 12:35 Midodrine (Midodrine Hcl 10 Mg Tab) 10 mg PO TID@0800,1200,1700 [facility] Stop: 06/23/20 07:59 Last Admin: 05/24/20 12:08 Dose: 10 mg Documented by: Multivitamins (Multivitamin Tab) 1 tab PO QAM [facility] Stop: 06/21/20 08:59 Last Admin: 05/24/20 08:50 Dose: 1 tab Documented by: Naloxone HCl (Naloxone Hcl 0.4 Mg/1 Ml Vial/Carp) 0.1 mg IV UD PRN PRN Reason: Opiate Overdose Stop: 06/19/20 18:58 Naloxone HCl (Naloxone Hcl 0.4 Mg/1 Ml Vial/Carp) 0.1 mg IV Q5M PRN PRN Reason: Oversedation/Resp Depression Stop: 06/20/20 12:35 Ondansetron HCl (Ondansetron Inj 2 Mg/Ml 2 Ml Vial) 4 mg IV Q6H PRN PRN Reason: Nausea And Vomiting Stop: 06/19/20 18:58 Last Admin: 05/21/20 05:31 Dose: 4 mg Documented by: Ondansetron HCl (Ondansetron Inj 2 Mg/Ml 2 Ml Vial) 4 mg IV Q6H PRN PRN Reason: Nausea And Vomiting Stop: 06/20/20 12:35 Oxycodone HCl (Oxycodone Hcl Ir 5 Mg Tab (Immediate Release)) 5 mg PO Q4H PRN PRN Reason: MODERATE Pain (Scale 4,5,6) Stop: 06/03/20 18:58 Last Admin: 05/20/20 21:44 Dose: 5 mg Documented by: Pantoprazole Sodium (Pantoprazole 40 Mg Tab) 40 mg PO QAM [facility] Stop: 06/20/20 08:59 Last Admin: 05/24/20 08:49 Dose: 40 mg Documented by: Polyethylene Glycol (Polyethylene (Miralax) 17 Gm Pack) 17 gm PO DAILY PRN PRN Reason: Constipation Stop: 06/19/20 18:58 Propranolol HCl (Propranolol Hcl 10 Mg Tab) 10 mg PO TID [facility] Stop: 06/19/20 20:59 Last Admin: 05/23/20 09:13 Dose: Not Given Documented by: Senna/Docusate Sodium (Docusate Sodium/Senna 50/8.6mg Tab) 2 tab PO [facility] Stop: 06/19/20 20:59 Last Admin: 05/23/20 20:10 Dose: Not Given Documented by: Sennosides (Senna 8.6 Mg Tab) 17.2 mg PO [facility] Stop: 06/20/20 20:59 Last Admin: 05/23/20 20:10 Dose: Not Given Documented by: Sertraline HCl (Sertraline Hcl 100 Mg Tablet) 100 mg PO QPM [facility] Stop: 06/19/20 20:59 Last Admin: 05/23/20 20:11 Dose: 100 mg Documented by: Spironolactone (Spironolactone 25 Mg Tab) 50 mg PO BID [facility] Stop: 06/19/20 20:59 Last Admin: 05/22/20 08:05 Dose: 50 mg Documented by: Thiamine HCl (Thiamine Hcl 100 Mg Tab) 100 mg PO QAM [facility] Stop: 06/21/20 11:59 Last Admin: 05/24/20 08:49 Dose: 100 mg Documented by: PG Care Time/CCT Total # of Minutes Spent Total Time Spent with Patient: Total time spent is greater than 50% in coordination of care (as documented) at patient's floor/unit and/or counseling patient: Coding Level of Care Code 56144 Subseq Hosp Care Lvl 3 Diagnoses Acute kidney injury N17.9 Closed right ankle fracture S82.891A Encounter type: initial encounter Cirrhosis K70.30 Ascites presence: without ascites Hepatic cirrhosis type: alcoholic cirrhosis Anemia D64.9 Elevated bilirubin R17 Thrombocytopenia D69.6 Alcohol withdrawal F10.239 DVT prophylaxis Z29.9 (1) Closed right ankle fracture Encounter type: initial encounter Qualified Code(s): S82.891A - Other fracture of right lower leg, initial encounter for closed fracture (2) Cirrhosis Ascites presence: without ascites Hepatic cirrhosis type: alcoholic cirrhosis Qualified Code(s): K70.30 - Alcoholic cirrhosis of liver without ascites
[2020-05-24] MEDS: ALBUMIN 25% 50 ML IV SCH ×3 (13:42→22:32)
[2020-05-24] MEDS ORDERED: ALBUMIN 25% 100 ML IV SCH (14:00)
--- NOTE | 2020-05-24 15:46 | Ultrasound Report ---
RENAL ULTRASOUND CLINICAL HISTORY: Acute kidney injury. COMPARISON STUDY: None. TECHNIQUE: Sonography of the kidneys and the urinary bladder was performed. FINDINGS: Incidental note is made of a right pleural effusion. The right kidney measures 11.3 x 5 x 5 .5 cm and the left kidney measures 12.6 x 5.6 x 6.5 cm. No hydronephrosis is present. No renal calcul us or mass is identified. Liver is suboptimally assessed on this exam. However, there is coarsening o f hepatic echotexture with nodularity of the liver surface. This favors cirrhosis. Small to moderate abdominal and pelvic ascites is noted. IMPRESSION: 1. No hydronephrosis. 2. Probable cirrhosis with small to moderate ascites. 3. Right pleural effusion. ACT 112: Negative or not required by law. Electronically signed by: Demetrius Vuong M.D. 05/24/2020 3:45 PM
[2020-05-24] MEDS ORDERED: NORMOSOL-R 500 ML IV ONE (17:20)
[2020-05-24] MEDS ORDERED: ALBUT/IPRATROP 3MG/0.5MG NEB 3 ML VIAL NEB STA (17:22)
[2020-05-24] MEDS: DOCUSATE SODIUM/SENNA 50/8.6MG TAB PO SCH (22:17)
[2020-05-24] MEDS: SENNA 8.6 MG TAB PO SCH (22:17)
[2020-05-24] MEDS: SERTRALINE HCL 100 MG TABLET PO SCH (22:17)
[2020-05-24] MEDS ORDERED: LACTATED RINGER'S 500 ML IV ONE (23:53)
--- NOTE | 2020-05-24 23:54 | Communication Note ---
Date of Service: May 24, 2020 Patient hypotensive down to 78/42, will continue albumin and add 500 ml bolus of LR and LR @80 mls/hour and recheck shortly
[2020-05-25] MEDS: ALBUMIN 25% 50 ML IV SCH ×7 (00:02→23:09)
[2020-05-25] MEDS: LACTATED RINGER'S 1,000 ML IV SCH ×2 (01:08→19:42)
[2020-05-25] MEDS: ACETAMINOPHEN 500 MG TAB PO SCH ×3 (05:25→22:09)
[2020-05-25] MEDS: LEVOTHYROXINE SODIUM 25 MCG TABLET PO SCH (05:25)
[2020-05-25] MEDS ORDERED: LACTATED RINGER'S 1,000 ML IV ONE (05:45)
[2020-05-25] MEDS: FERROUS SULFATE 325 MG TAB PO SCH (07:32)
[2020-05-25 07:36] LABS: Hematocrit (blood only) 22.4 % (37-47); Hemoglobin 7.2 g/dL (12.0-16.0); Mean Corpuscular Hgb Conc 32.1 g/dL (32-36); Mean Corpuscular Volume 99.6 fL (80-100); Nucleated RBC # (auto) 0.04 K/uL (0-0); Nucleated RBC % (auto) 0.6 %; RDW Standard Deviation 62.1 fL (36.4-46.3); Red Blood Count 2.25 M/uL (4.2-5.4); White Blood Count 6.54 K/uL (4.8-10.8)
[2020-05-25 08:02] LABS: Albumin Level 2.6 gm/dl (3.4-5.0); BUN Creatinine Ratio 14.5 (10-20); Calcium 8.3 mg/dl (8.5-10.1); Creatinine Clr Calc Pharmacy 18.3 ml/min; Est GFR (African American) 14.9; Est GFR (Non-African American) 12.8; Potassium 4.9 mmol/L (3.5-5.1)
[2020-05-25 08:05] LABS: Albumin Globulin Ratio 0.8 (0.9-2); Bilirubin,Total 2.8 mg/dl (0.2-1); Globulin 3.5 gm/dl (2.5-4.0); Total Protein 6.1 gm/dl (6.4-8.2)
[2020-05-25 08:18] LABS: Mean Platelet Volume 10.2 fL (7.4-10.4); Platelet Count 91 K/uL (130-400)
[2020-05-25] MEDS: GABAPENTIN 300 MG CAP PO SCH (08:37)
[2020-05-25] MEDS: MULTIVITAMIN TAB PO SCH (08:37)
[2020-05-25] MEDS: THIAMINE HCL 100 MG TAB PO SCH (08:37)
[2020-05-25] MEDS: FOLIC ACID 1 MG TAB PO SCH (08:37)
[2020-05-25] MEDS: DOCUSATE SODIUM 100 MG CAP PO SCH ×2 (08:37→22:09)
[2020-05-25] MEDS: MIDODRINE HCL 10 MG TAB PO SCH ×3 (08:38→17:45)
[2020-05-25] MEDS: ASCORBIC ACID 500 MG TAB PO SCH ×2 (08:38→17:45)
[2020-05-25] MEDS: ASPIRIN 81 MG ECTAB PO SCH (08:38)
[2020-05-25] MEDS ORDERED: LACTULOSE SYRUP 10 GM/15 ML BTL 960 ML PO SCH (09:00)
[2020-05-25] MEDS ORDERED: SODIUM CHLORIDE 0.9% 250 ML IV PRN ×2 (09:08→09:14)
--- NOTE | 2020-05-25 09:36 | Hospitalist Progress Note ---
Date of Service May 25, 2020 Assessment & Plan (1) Acute kidney injury: Cr rising, up to 3.6 today likely from volume losses, hypotension perioperatively and post operatively, also with anemia give one unit PRBC today to try to improve blood pressure, renal perfusion continue to encourage PO intake BP low normal,continue Midodrine 10mg TID, Albumin q8 hours electrolytes stable monitor UO closely, prefer her to be hypervolemic at this time appreciate recommendations from Dr. Simon anticipate her being here through the weekend to monitor renal function and see some improvement (2) Closed right ankle fracture: Patient has a bimalleolar vs trimalleolar fracture right ankle which was sustained at least 1 day prior to admission she tripped in her kitchen, rolled the ankle surgical correction on 05/21/2020 NWB on right ankle, aspirin 81mg BID for DVT prophylaxis clear for d/c from orthopedic standpoint plan for rehab needs to stay for HUMBERTO discussed with her today, likely here through the weekend (3) Cirrhosis: Cirrhosis due to alcoholism has been without drinking alcohol for some time patient reportedly was in [facility] for hepatic encephalopathy in January. She reportedly has not had a paracentesis for 9 months. Continues on lactulose and holding Aldactone due to HUMBERTO minimal ascites on exam mentation is a little slow today, will check ammonia level c/o of diarrhea 8-9 times a day, backed off on lactulose dose on 05/24, goal is 2-3 BM a day (4) Anemia: Patient is a normocytic anemia she previously was prescribed iron is unclear whether she may have GI blood loss sources such as varices or GAVE patient Hb is lower at 7.2 today, she agrees to one unit PRBC repeat this afternoon (5) Elevated bilirubin: Patient is obviously jaundiced patient's family states she is always jaundice unclear whether the bilirubin at 3 is her normal range or not. attempt to get records from [facility] where she was received most of her previous care (6) Thrombocytopenia: Patient is thrombocytopenia is most likely related to her her cirrhosis we will follow 91 today (7) Alcohol withdrawal: Patient may be having some visual hallucinations she has no tachycardia or tremor continue Gabapentin taper, tolerating well (8) DVT prophylaxis: Surgery is chosen aspirin twice daily for DVT prevention Admission and Anticipated Discharge Date Admission Date: May 20, 2020 Subjective patient is a little more fatigued this morning, she fell asleep while trying to eat her oatmeal, dropped it on her gown she woke up for me immediately and was appropriately oriented we discussed getting a unit of PRBC since her Hb had drifted down to 7.2 from 8.0 yesterday her blood pressure was low overnight and the resident gave her fluid bolus, SBP is 97 this morning Cr is rising, up to 3.6 this morning, making some urine via perea discussed with Dr. Simon, appreciate his input I updated her sister over the phone, answered all questions Review of Systems Review of Systems: All systems reviewed & are unremarkable except as noted in Subjective Gastrointestinal: + diarrhea/loose stools Musculoskeletal: + joint pain (right ankle) Physical Exam Constitutional: WD/WN, vitals as above Eyes: PERRL, conjunctivae normal, anicteric sclerae ENMT: external ear and nose normal, oropharynx normal Neck: trachea midline, no thyromegaly Respiratory: normal respiratory effort, lungs clear to auscultation Cardiovascular: RRR, no murmur, no edema Gastrointestinal (Abdomen): Inspection/Auscultation: + abdomen distended (mild) and normal bowel sounds Percussion/Palpation: abdomen soft and + tympanic to percussion; abdomen nontender, no guarding, abdomen not rigid and no ascites Musculoskeletal: no cyanosis or clubbing, extremities motor strength 5/5 Ankle: + ankle abnormal to inspection (right ankle in cast) Skin: no rashes, warm and dry Neurologic: patellar DTR's 2+ bilat, sensation intact and PERRL, EOMI, accommodation nl, no face palsy, no dysarthria Psychiatric: Orientation: oriented x 3; + not alert (lethargic) Lymphatic: no cervical or axillary lymphadenopathy Results & Data Results & Data ([facility]) Vital Signs (Past 12 Hours) Vital Signs Temp Pulse Pulse Resp BP BP Pulse Ox 05/25/20 07:42 36.8 C 76 18 97/61 L 93 05/25/20 06:27 36.7 C 78 16 80/40 L 95 05/25/20 05:20 36.6 C 76 18 83/38 L 96 05/25/20 04:12 88/45 L 05/25/20 01:52 87/41 L 05/25/20 01:08 78 18 83/47 L 97 05/25/20 00:01 37.1 C 76 16 85/46 L 95 05/24/20 23:31 36.8 C 79 15 84/49 L 95 Laboratory Results Laboratory Results - last 24 hr 05/25/20 05/25/20 06:58 06:58 WBC 6.54 RBC 2.25 L Hgb 7.2 L Hct 22.4 L MCV 99.6 MCH 32.0 MCHC 32.1 RDW Std Deviation 62.1 H RDW Coeff of Lam 18.0 H Plt Count 91 L MPV 10.2 Absolute Nucleated RBC 0.04 H Nucleated RBC % (auto) 0.6 Sodium 132 L Potassium 4.9 Chloride 104 Carbon Dioxide 17 L Anion Gap 11.0 BUN 53 H Creatinine 3.68 H D Est Cr Clr Drug Dosing 18.3 Est GFR ( Amer) 14.9 Est GFR (Non-Af Amer) 12.8 BUN/Creatinine Ratio 14.5 Glucose 62 L Calcium 8.3 L Total Bilirubin 2.8 H AST 53 H ALT 10 L Alkaline Phosphatase 100 Total Creatine Kinase 47 Total Protein 6.1 L Albumin 2.6 L Globulin 3.5 Albumin/Globulin Ratio 0.8 L Medications Administered Current Inpatient Medications Acetaminophen (Acetaminophen 500 Mg Tab) 1,000 mg PO Q8 [facility] Stop: 06/20/20 13:59 Last Admin: 05/25/20 05:25 Dose: 1,000 mg Documented by: Ascorbic Acid (Ascorbic Acid 500 Mg Tab) 500 mg PO BIDM [facility] Stop: 06/20/20 16:59 Last Admin: 05/25/20 08:38 Dose: 500 mg Documented by: Aspirin (Aspirin 81 Mg Ectab) 81 mg PO QAM [facility] Stop: 06/24/20 08:59 Last Admin: 05/25/20 08:38 Dose: 81 mg Documented by: Bisacodyl (Bisacodyl 10 Mg Supp) 10 mg [place] DAILY PRN PRN Reason: Constipation Stop: 06/20/20 12:35 Diphenhydramine HCl (Diphenhydramine Hcl 25 Mg Cap) 25 mg PO Q8H PRN PRN Reason: Itching Stop: 06/20/20 12:35 Docusate Sodium (Docusate Sodium 100 Mg Cap) 100 mg PO BID [facility] Stop: 06/20/20 20:59 Last Admin: 05/25/20 08:37 Dose: 100 mg Documented by: Ferrous Sulfate (Ferrous Sulfate 325 Mg Tab) 325 mg PO QDB [facility] Stop: 06/21/20 07:29 Last Admin: 05/25/20 07:32 Dose: 325 mg Documented by: Folic Acid (Folic Acid 1 Mg Tab) 1 mg PO QAM [facility] Stop: 06/20/20 08:59 Last Admin: 05/25/20 08:37 Dose: 1 mg Documented by: Gabapentin (Gabapentin 600 Mg Tab) 600 mg PO Q24H [facility] Stop: 05/25/20 22:01 Gabapentin (Gabapentin 300 Mg Cap) 300 mg PO QAM [facility] Stop: 05/26/20 09:01 Last Admin: 05/25/20 08:37 Dose: 300 mg Documented by: Hydromorphone HCl (Hydromorphone Inj 0.5 Mg/0.5 Ml Syr) 0.5 mg IV Q4H PRN PRN Reason: Pain or Pre PT Stop: 06/04/20 12:35 Albumin Human (Albumin 25%) 50 mls @ 50 mls/hr IV 0600,0700,1400,1500,2200,2300 [facility] Stop: 05/27/20 13:59 Last Infusion: 05/25/20 08:23 Dose: Infused Documented by: Lactated Ringer's (Lr) 1,000 mls @ 80 mls/hr IV .[id number] [facility] Stop: 06/23/20 23:44 Last Infusion: 05/25/20 08:18 Dose: 80 mls/hr Documented by: Sodium Chloride (Nss) 250 mls @ 15 mls/hr IV .[id number] PRN PRN Reason: For Transfusion Stop: 05/25/20 19:08 Sodium Chloride (Nss) 250 mls @ 15 mls/hr IV .[id number] PRN PRN Reason: For Transfusion Stop: 05/25/20 19:21 Influenza Virus Vaccine Quadrival (Influenza Virus Quad Vaccine 0.5 Ml Syr) 0.5 ml IM .ONCE ONE Stop: 05/27/20 09:01 Lactulose (Lactulose Syrup 10 Gm/15 Ml Btl 960 Ml) 10 gm PO DAILY [facility] Stop: 06/24/20 08:59 Last Admin: 05/25/20 08:38 Dose: 10 gm Documented by: Levothyroxine Sodium (Levothyroxine Sodium 25 Mcg Tablet) 25 mcg PO DAILYBB [facility] Stop: 06/20/20 06:29 Last Admin: 05/25/20 05:25 Dose: 25 mcg Documented by: Magnesium Hydroxide (Magnesium Hydroxide Susp 30 Ml Udc) 30 ml PO DAILY PRN PRN Reason: Constipation Stop: 06/19/20 18:58 Metoclopramide HCl (Metoclopramide Hcl Inj 5 Mg/Ml 2 Ml Vial) 10 mg IV Q6H PRN PRN Reason: Nausea And Vomiting Stop: 06/20/20 12:35 Midodrine (Midodrine Hcl 10 Mg Tab) 10 mg PO TID@0800,1200,1700 [facility] Stop: 06/23/20 07:59 Last Admin: 05/25/20 08:38 Dose: 10 mg Documented by: Multivitamins (Multivitamin Tab) 1 tab PO QAM [facility] Stop: 06/21/20 08:59 Last Admin: 05/25/20 08:37 Dose: 1 tab Documented by: Naloxone HCl (Naloxone Hcl 0.4 Mg/1 Ml Vial/Carp) 0.1 mg IV UD PRN PRN Reason: Opiate Overdose Stop: 06/19/20 18:58 Naloxone HCl (Naloxone Hcl 0.4 Mg/1 Ml Vial/Carp) 0.1 mg IV Q5M PRN PRN Reason: Oversedation/Resp Depression Stop: 06/20/20 12:35 Octreotide Acetate (Octreotide Acetate 100 Mcg/Ml Vial) 100 mcg SQ Q8H [facility] Stop: 06/24/20 09:29 Ondansetron HCl (Ondansetron Inj 2 Mg/Ml 2 Ml Vial) 4 mg IV Q6H PRN PRN Reason: Nausea And Vomiting Stop: 06/19/20 18:58 Last Admin: 05/21/20 05:31 Dose: 4 mg Documented by: Ondansetron HCl (Ondansetron Inj 2 Mg/Ml 2 Ml Vial) 4 mg IV Q6H PRN PRN Reason: Nausea And Vomiting Stop: 06/20/20 12:35 Oxycodone HCl (Oxycodone Hcl Ir 5 Mg Tab (Immediate Release)) 5 mg PO Q4H PRN PRN Reason: MODERATE Pain (Scale 4,5,6) Stop: 06/03/20 18:58 Last Admin: 05/20/20 21:44 Dose: 5 mg Documented by: Pantoprazole Sodium (Pantoprazole 40 Mg Tab) 40 mg PO QAM [facility] Stop: 06/20/20 08:59 Last Admin: 05/24/20 08:49 Dose: 40 mg Documented by: Polyethylene Glycol (Polyethylene (Miralax) 17 Gm Pack) 17 gm PO DAILY PRN PRN Reason: Constipation Stop: 06/19/20 18:58 Propranolol HCl (Propranolol Hcl 10 Mg Tab) 10 mg PO TID [facility] Stop: 06/19/20 20:59 Last Admin: 05/23/20 09:13 Dose: Not Given Documented by: Senna/Docusate Sodium (Docusate Sodium/Senna 50/8.6mg Tab) 2 tab PO HS [facility] Stop: 06/19/20 20:59 Last Admin: 05/24/20 22:17 Dose: Not Given Documented by: Sennosides (Senna 8.6 Mg Tab) 17.2 mg PO HS [facility] Stop: 06/20/20 20:59 Last Admin: 05/24/20 22:17 Dose: Not Given Documented by: Sertraline HCl (Sertraline Hcl 100 Mg Tablet) 100 mg PO QPM [facility] Stop: 06/19/20 20:59 Last Admin: 05/24/20 22:17 Dose: 100 mg Documented by: Sodium Bicarbonate (Sodium Bicarbonate 650 Mg Tab) 650 mg PO Q8 [facility] Stop: 06/24/20 13:59 Spironolactone (Spironolactone 25 Mg Tab) 50 mg PO BID [facility] Stop: 06/19/20 20:59 Last Admin: 05/22/20 08:05 Dose: 50 mg Documented by: Thiamine HCl (Thiamine Hcl 100 Mg Tab) 100 mg PO QAM [facility] Stop: 06/21/20 11:59 Last Admin: 05/25/20 08:37 Dose: 100 mg Documented by: PG Care Time/CCT Total # of Minutes Spent Total Time Spent: 35 Total Time Spent with Patient: Total time spent is greater than 50% in coordination of care (as documented) at patient's floor/unit and/or counseling patient: Coding Level of Care Code 69750 Subseq Hosp Care Lvl 3 Diagnoses Acute kidney injury N17.9 Closed right ankle fracture S82.891A Encounter type: initial encounter Cirrhosis K70.30 Ascites presence: without ascites Hepatic cirrhosis type: alcoholic cirrhosis Anemia D64.9 Elevated bilirubin R17 Thrombocytopenia D69.6 Alcohol withdrawal F10.239 DVT prophylaxis Z29.9 (1) Closed right ankle fracture Encounter type: initial encounter Qualified Code(s): S82.891A - Other fracture of right lower leg, initial encounter for closed fracture (2) Cirrhosis Ascites presence: without ascites Hepatic cirrhosis type: alcoholic cirrhosis Qualified Code(s): K70.30 - Alcoholic cirrhosis of liver without ascites
[2020-05-25] MEDS: OCTREOTIDE ACETATE 100 MCG/ML VIAL SQ SCH ×2 (10:15→17:49)
--- NOTE | 2020-05-25 10:47 | Nephrology Progress Note ---
Date of Service May 25, 2020 Assessment & Plan (1) Acute kidney injury: Clinically consistent with ATN and prerenal physiology with notable concern for HRS type 1. Urine sodium will be updated with monitoring. Remains oliguric. Volume status appears acceptable but I would favor a continued positive fluid balance. LR given IV overnight. Unfortunately urine output did not respond to fluid boluses. IV albumin 25 grams Q 8 hrs ordered for today in addition to 1 u PRBC. Document strict I/O's. Continue to hold spironolactone. NAGMA associated with HUMBERTO + stool losses. Will start low dose NaHCO3 replacement. Serum sodium slightly low related to stool losses and poor solute intake. Electrolytes otherwise acceptable. Gabapentin reduced to 300 mg daily. Avoid any additional NSAID use. Medications otherwise appropriate for kidney function. Renal US reviewed. No evidence of obstruction. Rm placed for I/O's. (2) Closed right ankle fracture: POD #4 s/p ORIF (3) Cirrhosis: Unfortunately continues to drink complicating possible txp candidacy. Midodrine and albumin for BP and EAV support. Octreotide 100 Q 8 SQ added this AM. May increase IV albumin as needed. Thiamine and folic acid supplements. (4) Anemia: HGB dropped overnight. 1 u PRBC ordered for transfusion. Repeat H/H this afternoon. Admission and Anticipated Discharge Date Admission Date: May 20, 2020 Subjective Rm placed overnight to monitor UOP. Hypotensive -- 1.5 L LR given. LR running at 80 ml/hr now. Remains on IV albumin 25 Q 8 hrs. Tired this morning. No fevers or chills. Denies significant pain. Abdominal distention increasing but not significantly uncomfortable. Breathing comfortably. UOP remains very low. I discussed the plan of care with Dr. Barclay this AM. Review of Systems Review of Systems: All systems reviewed & are unremarkable except as noted in HPI & below Physical Exam Constitutional: well developed; no acute distress Eyes: sclerae not anicteric and no corneal abnormality ENMT: Mouth: + dry oral mucous membranes; no oral mucosal abnormality Neck: normal visual inspection and trachea midline Respiratory: normal respiratory effort Auscultation: lungs clear to auscultation bilaterally and + rales (few at right base) Cardiovascular: Rate/Rhythm: regular rate Heart Sounds: normal S1 and normal S2 Extremities: + edema (trace) Gastrointestinal (Abdomen): Inspection/Auscultation: + abdomen distended Percussion/Palpation: abdomen nontender Musculoskeletal: Extremities: no cyanosis and no clubbing Skin: normal turgor and + jaundice Neurologic: Motor/Sensory: no tremor and no asterixis Psychiatric: Orientation: alert and oriented x 3 Genitourinary: Rm draining concentrated urine Results & Data ([facility]) Vital Signs (Past 12 Hours) Vital Signs Temp Pulse Pulse Resp BP BP Pulse Ox 05/25/20 07:42 36.8 C 76 18 97/61 L 93 05/25/20 06:27 36.7 C 78 16 80/40 L 95 05/25/20 05:20 36.6 C 76 18 83/38 L 96 05/25/20 04:12 88/45 L 05/25/20 01:52 87/41 L 05/25/20 01:08 78 18 83/47 L 97 05/25/20 00:01 37.1 C 76 16 85/46 L 95 05/24/20 23:31 36.8 C 79 15 84/49 L 95 Laboratory Results Laboratory Results - last 24 hr 05/25/20 05/25/20 05/25/20 06:58 06:58 09:58 WBC 6.54 RBC 2.25 L Hgb 7.2 L Hct 22.4 L MCV 99.6 MCH 32.0 MCHC 32.1 RDW Std Deviation 62.1 H RDW Coeff of Lam 18.0 H Plt Count 91 L MPV 10.2 Absolute Nucleated RBC 0.04 H Nucleated RBC % (auto) 0.6 Sodium 132 L Potassium 4.9 Chloride 104 Carbon Dioxide 17 L Anion Gap 11.0 BUN 53 H Creatinine 3.68 H D Est Cr Clr Drug Dosing 18.3 Est GFR ( Amer) 14.9 Est GFR (Non-Af Amer) 12.8 BUN/Creatinine Ratio 14.5 Glucose 62 L Calcium 8.3 L Total Bilirubin 2.8 H AST 53 H ALT 10 L Alkaline Phosphatase 100 Total Creatine Kinase 47 Total Protein 6.1 L Albumin 2.6 L Globulin 3.5 Albumin/Globulin Ratio 0.8 L Blood Type Pending Antibody Screen Pending Crossmatch See Detail PG Care Time/CCT Total # of Minutes Spent Total Time Spent with Patient: Total time spent is greater than 50% in coordination of care (as documented) at patient's floor/unit and/or counseling patient: Coding Level of Care Code 90334 Subseq Hosp Care Lvl 3 Diagnoses Acute kidney injury N17.9 Closed right ankle fracture S82.891A Encounter type: initial encounter Cirrhosis K70.30 Ascites presence: without ascites Hepatic cirrhosis type: alcoholic cirrhosis Anemia D64.9 (1) Closed right ankle fracture Encounter type: initial encounter Qualified Code(s): S82.891A - Other fracture of right lower leg, initial encounter for closed fracture (2) Cirrhosis Ascites presence: without ascites Hepatic cirrhosis type: alcoholic cirrhosis Qualified Code(s): K70.30 - Alcoholic cirrhosis of liver without ascites
[2020-05-25] MEDS: SODIUM BICARBONATE 650 MG TAB PO SCH ×2 (12:45→22:10)
--- NOTE | 2020-05-25 16:22 | Progress Notes ---
DATE: 05/25/2020 SUBJECTIVE: A 59-year-old white female postop day 4 from ORIF of her right ankle fracture. Orthopedically, she is doing well. Her renal function continues to deteriorate despite management. Not having much ankle pain. No chest pain or shortness of breath. OBJECTIVE: VITAL SIGNS: Temperature 36.7. Vital signs stable. GENERAL: Shows a pleasant, middle-aged female. She is lying in bed, looks reasonably comfortable. EXTREMITIES: Examination of the right leg and ankle reveals the splint to be in place. It is clean, dry and intact. She can flex and extend her toes appropriately. Minimal swelling. ASSESSMENT: A 59-year-old white female postoperative day 4 from open reduction internal fixation of right ankle fracture. Orthopedically, she is doing well. We do need to make sure we keep all pressure off her heel to prevent heel sores. She continues to have her renal dysfunction and being treated by the medicine service and the nephrology service. She has been given a unit of packed cells today to hopefully improve her perfusion of her kidneys and assist in renal recovery. She is otherwise asymptomatic. PLAN: 1. DVT prophylaxis including thigh-high TEDs, SCDs, and we have changed her to just one baby aspirin a day in hopes of not hindering any renal function. 2. PT/OT. She is nonweightbearing in the right ankle. 3. Pain control, doing pretty well with current pain regimen. 4. Medical management as per the medicine service. 5. Heel pressure ulcer prevention. 6. Disposition: She is orthopedically okay for discharge at any time medically stable. Once again, I need to see her back in 2-3 weeks out from surgery. If there are any orthopedic questions, you can direct it to me at [phone].
[2020-05-25 17:57] LABS: Hemoglobin 8.4 g/dL (12.0-16.0)
[2020-05-25 18:15] LABS: BUN Creatinine Ratio 13.5 (10-20); Calcium 8.6 mg/dl (8.5-10.1); Est GFR (African American) 12.7; Potassium 5.5 mmol/L (3.5-5.1)
[2020-05-25] MEDS ORDERED: GABAPENTIN 600 MG TAB PO SCH (22:00)
[2020-05-25] MEDS ORDERED: ALBUMIN 25% 100 ML IV SCH (22:00)
[2020-05-25] MEDS: SERTRALINE HCL 100 MG TABLET PO SCH (22:09)
[2020-05-25] MEDS: SENNA 8.6 MG TAB PO SCH (22:10)
[2020-05-25] MEDS: DOCUSATE SODIUM/SENNA 50/8.6MG TAB PO SCH (22:10)
[2020-05-26] MEDS: OCTREOTIDE ACETATE 100 MCG/ML VIAL SQ SCH ×2 (01:29→11:11)
[2020-05-26 06:11] LABS: Hemoglobin 8.2 g/dL (12.0-16.0); Mean Corpuscular Hemoglobin 31.7 pg (25-34); Mean Corpuscular Hgb Conc 32.8 g/dL (32-36); Mean Corpuscular Volume 96.5 fL (80-100); RDW Coefficient of Variation 19.3 % (11.5-14.5); RDW Standard Deviation 66.4 fL (36.4-46.3); Red Blood Count 2.59 M/uL (4.2-5.4); White Blood Count 8.37 K/uL (4.8-10.8)
[2020-05-26] MEDS: SODIUM BICARBONATE 650 MG TAB PO SCH ×2 (06:24→15:37)
[2020-05-26 06:25] LABS: Mean Platelet Volume 10.7 fL (7.4-10.4); Platelet Count 97 K/uL (130-400)
[2020-05-26] MEDS: ALBUMIN 25% 50 ML IV SCH ×3 (06:25→15:37)
[2020-05-26] MEDS: ACETAMINOPHEN 500 MG TAB PO SCH ×3 (06:25→21:54)
[2020-05-26] MEDS: LEVOTHYROXINE SODIUM 25 MCG TABLET PO SCH (06:25)
[2020-05-26 07:06] LABS: BUN Creatinine Ratio 12.9 (10-20); Calcium 8.3 mg/dl (8.5-10.1); Creatinine Clr Calc Pharmacy 14.5 ml/min; Est GFR (African American) 11.3; Est GFR (Non-African American) 9.8; Magnesium 1.2 mg/dl (1.8-2.4); Phosphorus 3.1 mg/dl (2.5-4.9); Potassium 5.1 mmol/L (3.5-5.1)
[2020-05-26] MEDS: FERROUS SULFATE 325 MG TAB PO SCH (09:12)
[2020-05-26] MEDS: MIDODRINE HCL 10 MG TAB PO SCH ×2 (09:13→14:10)
[2020-05-26] MEDS: ASCORBIC ACID 500 MG TAB PO SCH (09:13)
[2020-05-26] MEDS: DOCUSATE SODIUM 100 MG CAP PO SCH (09:14)
[2020-05-26] MEDS: ASPIRIN 81 MG ECTAB PO SCH (09:14)
[2020-05-26] MEDS: LACTULOSE SYRUP 20 GM/30 ML UDC PO SCH ×2 (09:14→14:10)
[2020-05-26] MEDS: GABAPENTIN 300 MG CAP PO SCH (09:15)
[2020-05-26] MEDS: THIAMINE HCL 100 MG TAB PO SCH (09:15)
[2020-05-26] MEDS: MULTIVITAMIN TAB PO SCH (09:15)
[2020-05-26] MEDS: FOLIC ACID 1 MG TAB PO SCH (09:15)
[2020-05-26] MEDS: MAGNESIUM SULFATE / D5W 1 GM/100 ML BAG IV SCH ×4 (10:41→17:47)
--- NOTE | 2020-05-26 10:57 | Nephrology Progress Note ---
Date of Service May 26, 2020 Assessment & Plan (1) Acute kidney injury: Clinically consistent with HRS type 1 and possible underlying ATN. Urine sodium of 7 argues against a significant component of ATN. With HRS, prognosis is guarded. No renal recovery noted and potential need for [employer] in the upcoming days. Underlying advanced liver disease certainly complicating decisions regarding dialysis. With HD, MELD suggests 3 month mortality of ~50%. Continue midodrine, octreotide, and albumin as Rx. Remains oliguric. Volume status appears acceptable. Document strict I/O's. Continue to hold spironolactone. NAGMA associated with HUMBERTO + stool losses -- low dose NaHCO3 replacement started yesterday. Electrolytes otherwise acceptable. Gabapentin reduced to 300 mg daily. Avoid any additional NSAID use. Medications otherwise appropriate for kidney function. Renal US reviewed. No evidence of obstruction. Rm placed for I/O's. Rm may be removed per nursing protocol. (2) Closed right ankle fracture: POD #5 s/p ORIF (3) Cirrhosis: Unfortunately continues to drink complicating possible txp candidacy. Midodrine and albumin for BP and EAV support. Octreotide 100 Q 8 SQ. Albumin 50 g Q 8 hrs, increase as needed. Unfortunately, prognosis is guarded. HRS progressing toward dialysis in a patient who is not a candidate is a terminal condition. Goals of care discussed in detail. At Tasha's request, I will contact her sister. Palliative care consult requested to assist with goals of care. Thiamine and folic acid supplements. (4) Anemia: 1 u PRBC transfused yesterday. Hemoglobin responded appropriately. Admission and Anticipated Discharge Date Admission Date: May 20, 2020 Subjective No acute events overnight. Remains oliguric. No fevers or chills. Denies significant pain. Rm draining dark yellow urine. Abdominal distention slightly increased. Does not endorse significant discomfort. No dyspnea. Review of Systems Review of Systems: All systems reviewed & are unremarkable except as noted in HPI & below Physical Exam Constitutional: well developed; no acute distress Eyes: sclerae not anicteric and no corneal abnormality ENMT: Mouth: + dry oral mucous membranes; no oral mucosal abnormality Neck: normal visual inspection and trachea midline Respiratory: normal respiratory effort Auscultation: lungs clear to auscultation bilaterally and + rales (few at right base) Cardiovascular: Rate/Rhythm: regular rate Heart Sounds: normal S1 and normal S2 Extremities: + edema (trace) Gastrointestinal (Abdomen): Inspection/Auscultation: + abdomen distended Percussion/Palpation: abdomen nontender Musculoskeletal: Extremities: no cyanosis and no clubbing Skin: normal turgor and + jaundice Neurologic: Motor/Sensory: no tremor and no asterixis Psychiatric: Orientation: alert and oriented x 3 Results & Data ([facility]) Vital Signs (Past 12 Hours) Vital Signs Temp Pulse Pulse Resp BP Pulse Ox 05/26/20 07:56 36.6 C 71 16 96/55 L 96 05/26/20 06:25 36.4 C L 72 16 95/61 L 94 05/26/20 00:09 36.9 C 74 16 107/58 L 94 05/25/20 23:07 36.9 C 73 14 106/67 94 Laboratory Results Laboratory Results - last 24 hr 05/25/20 05/25/20 05/25/20 09:58 10:14 17:43 WBC RBC Hgb 8.4 L Hct 26.0 L MCV MCH MCHC RDW Std Deviation RDW Coeff of Lam Plt Count MPV Sodium Potassium Chloride Carbon Dioxide Anion Gap BUN Creatinine Est Cr Clr Drug Dosing Est GFR ( Amer) Est GFR (Non-Af Amer) BUN/Creatinine Ratio Glucose Calcium Phosphorus Magnesium Ammonia Ur Random Sodium 7 Blood Type O Positive Antibody Screen NEGATIVE Crossmatch See Detail 05/25/20 05/25/20 05/26/20 17:43 17:43 05:43 WBC 8.37 RBC 2.59 L Hgb 8.2 L Hct 25.0 L MCV 96.5 MCH 31.7 MCHC 32.8 RDW Std Deviation 66.4 H RDW Coeff of Lam 19.3 H Plt Count 97 L MPV 10.7 H Sodium 130 L Potassium 5.5 H Chloride 104 Carbon Dioxide 19 L Anion Gap 7.0 BUN 57 H Creatinine 4.19 H D Est Cr Clr Drug Dosing 16.0 Est GFR ( Amer) 12.7 Est GFR (Non-Af Amer) 11.0 BUN/Creatinine Ratio 13.5 Glucose 110 H Calcium 8.6 Phosphorus Magnesium Ammonia 70.0 H Ur Random Sodium Blood Type Antibody Screen Crossmatch 05/26/20 05/26/20 05:43 05:43 WBC RBC Hgb Hct MCV MCH MCHC RDW Std Deviation RDW Coeff of Lam Plt Count MPV Sodium 133 L Potassium 5.1 Chloride 104 Carbon Dioxide 21 Anion Gap 8.0 BUN 59 H Creatinine 4.62 H* D Est Cr Clr Drug Dosing 14.5 Est GFR ( Amer) 11.3 Est GFR (Non-Af Amer) 9.8 BUN/Creatinine Ratio 12.9 Glucose 92 Calcium 8.3 L Phosphorus 3.1 Magnesium 1.2 L Ammonia 73.0 H Ur Random Sodium Blood Type Antibody Screen Crossmatch PG Care Time/CCT Total # of Minutes Spent Total Time Spent with Patient: Total time spent is greater than 50% in coordination of care (as documented) at patient's floor/unit and/or counseling patient: Coding Level of Care Code 14011 Subseq Hosp Care Lvl 3 Diagnoses Acute kidney injury N17.9 Closed right ankle fracture S82.891A Encounter type: initial encounter Cirrhosis K70.30 Ascites presence: without ascites Hepatic cirrhosis type: alcoholic cirrhosis Anemia D64.9 (1) Closed right ankle fracture Encounter type: initial encounter Qualified Code(s): S82.891A - Other fracture of right lower leg, initial encounter for closed fracture (2) Cirrhosis Ascites presence: without ascites Hepatic cirrhosis type: alcoholic cirrhosis Qualified Code(s): K70.30 - Alcoholic cirrhosis of liver without ascites
--- NOTE | 2020-05-26 14:35 | Hospitalist Progress Note ---
Date of Service May 26, 2020 Assessment & Plan (1) Acute kidney injury: Cr rising, up to 4.6 today likely from volume losses, hypotension perioperatively and post operatively, also with anemia give one unit PRBC 05/25 to try to improve blood pressure, renal perfusion BP low normal, treated with Midodrine 10mg TID, Albumin q8 hours, Octreotide Q8 K was 5.5 yesterday, 5.[address] Simon has diagnosed her with HRS, she is oliguric, not responding to treatment consulted palliative care will make comfort measures only, plan to discharge to SNF on hospice/palliative care will stop treatment, stop lab draws (2) Closed right ankle fracture: Patient has a bimalleolar vs trimalleolar fracture right ankle which was sustained at least 1 day prior to admission she tripped in her kitchen, rolled the ankle surgical correction on 05/21/2020 NWB on right ankle, aspirin 81mg BID for DVT prophylaxis clear for d/c from orthopedic standpoint initially planned for rehab now will go with hospice care (3) Cirrhosis: Cirrhosis due to alcoholism has been without drinking alcohol for some time patient reportedly was in [facility] for hepatic encephalopathy in January. She reportedly has not had a paracentesis for 9 months. Continues on lactulose and holding Aldactone due to HUMBERTO minimal ascites on exam mentation is a little slow today, ammonia is up to 73 stop Lactulose as she hates having diarrhea and it makes her uncomfortable comfort measures (4) Anemia: Patient is a normocytic anemia she previously was prescribed iron is unclear whether she may have GI blood loss sources such as varices or GAVE patient Hb is 8.2 today (5) Elevated bilirubin: due to cirrhosis (6) Thrombocytopenia: due to cirrhosis (7) Alcohol withdrawal: stop gabapentin (8) DVT prophylaxis: Surgery is chosen aspirin twice daily for DVT prevention stop as she is comfort measures Admission and Anticipated Discharge Date Admission Date: May 20, 2020 Subjective patient's Cr rising to 4.6, K is 5.1, ammonia is 72 she is more lethargic and more confused, eating very little very little urine output in the perea spoke with Dr. Simon, he feels that she has HRS, she will not recover, recommends palliative care I spoke with the patient and her sister at the bedside discussed the grim prognosis of HRS her sister actually brought in a living will stating that the patient would not want hemodialysis explained that the only patients we offer HD to are those on a transplant list sister and the patient agree with plan for palliative care Dr. Ng visited with patient, spoke with her afterwards DNR, comfort measures only, will work on going to SNF for hospice care CM will work on placement Review of Systems Review of Systems: All systems reviewed & are unremarkable except as noted in Subjective Constitutional: + fatigue and + weakness; no fever Cardiovascular: + edema; no chest pain Gastrointestinal: + diarrhea/loose stools; no abdominal pain, no nausea, no vomiting and no constipation Musculoskeletal: + joint pain (right ankle pain) Physical Exam Constitutional: WD/WN, vitals as above Eyes: PERRL, conjunctivae normal, anicteric sclerae ENMT: external ear and nose normal, oropharynx normal Neck: trachea midline, no thyromegaly Respiratory: normal respiratory effort, lungs clear to auscultation Cardiovascular: RRR, no murmur, no edema Gastrointestinal (Abdomen): Inspection/Auscultation: + abdomen distended (mild) and normal bowel sounds Percussion/Palpation: abdomen soft and + tym panic to percussion; abdomen nontender, no guarding, abdomen not rigid and no ascites Musculoskeletal: no cyanosis or clubbing, extremities motor strength 5/5 Ankle: + ankle abnormal to inspection (right ankle in cast) Skin: no rashes, warm and dry Neurologic: patellar DTR's 2+ bilat, sensation intact and PERRL, EOMI, accommodation nl, no face palsy, no dysarthria Psychiatric: Orientation: oriented x 3; + not alert (lethargic) Lymphatic: no cervical or axillary lymphadenopathy Results & Data Results & Data ([facility]) Vital Signs (Past 12 Hours) Vital Signs Temp Pulse Resp BP Pulse Ox 05/26/20 07:56 36.6 C 71 16 96/55 L 96 05/26/20 06:25 36.4 C L 72 16 95/61 L 94 Laboratory Results Laboratory Results - last 24 hr 05/25/20 05/25/20 05/25/20 09:58 17:43 17:43 WBC RBC Hgb 8.4 L Hct 26.0 L MCV MCH MCHC RDW Std Deviation RDW Coeff of Lam Plt Count MPV Sodium 130 L Potassium 5.5 H Chloride 104 Carbon Dioxide 19 L Anion Gap 7.0 BUN 57 H Creatinine 4.19 H D Est Cr Clr Drug Dosing 16.0 Est GFR ( Amer) 12.7 Est GFR (Non-Af Amer) 11.0 BUN/Creatinine Ratio 13.5 Glucose 110 H Calcium 8.6 Phosphorus Magnesium Ammonia Crossmatch See Detail 05/25/20 05/26/20 05/26/20 17:43 05:43 05:43 WBC 8.37 RBC 2.59 L Hgb 8.2 L Hct 25.0 L MCV 96.5 MCH 31.7 MCHC 32.8 RDW Std Deviation 66.4 H RDW Coeff of Lam 19.3 H Plt Count 97 L MPV 10.7 H Sodium 133 L Potassium 5.1 Chloride 104 Carbon Dioxide 21 Anion Gap 8.0 BUN 59 H Creatinine 4.62 H* D Est Cr Clr Drug Dosing 14.5 Est GFR ( Amer) 11.3 Est GFR (Non-Af Amer) 9.8 BUN/Creatinine Ratio 12.9 Glucose 92 Calcium 8.3 L Phosphorus 3.1 Magnesium 1.2 L Ammonia 70.0 H Crossmatch 05/26/20 05:43 WBC RBC Hgb Hct MCV MCH MCHC RDW Std Deviation RDW Coeff of Lam Plt Count MPV Sodium Potassium Chloride Carbon Dioxide Anion Gap BUN Creatinine Est Cr Clr Drug Dosing Est GFR ( Amer) Est GFR (Non-Af Amer) BUN/Creatinine Ratio Glucose Calcium Phosphorus Magnesium Ammonia 73.0 H Crossmatch Medications Administered Current Inpatient Medications Acetaminophen (Acetaminophen 500 Mg Tab) 1,000 mg PO Q8 [facility] Stop: 06/20/20 13:59 Last Admin: 05/26/20 14:11 Dose: 1,000 mg Documented by: Ascorbic Acid (Ascorbic Acid 500 Mg Tab) 500 mg PO BIDM [facility] Stop: 06/20/20 16:59 Last Admin: 05/26/20 09:13 Dose: 500 mg Documented by: Aspirin (Aspirin 81 Mg Ectab) 81 mg PO QAM [facility] Stop: 06/24/20 08:59 Last Admin: 05/26/20 09:14 Dose: 81 mg Documented by: Bisacodyl (Bisacodyl 10 Mg Supp) 10 mg IA DAILY PRN PRN Reason: Constipation Stop: 06/20/20 12:35 Diphenhydramine HCl (Diphenhydramine Hcl 25 Mg Cap) 25 mg PO Q8H PRN PRN Reason: Itching Stop: 06/20/20 12:35 Docusate Sodium (Docusate Sodium 100 Mg Cap) 100 mg PO BID [facility] Stop: 06/20/20 20:59 Last Admin: 05/26/20 09:14 Dose: Not Given Documented by: Ferrous Sulfate (Ferrous Sulfate 325 Mg Tab) 325 mg PO QDB [facility] Stop: 06/21/20 07:29 Last Admin: 05/26/20 09:12 Dose: 325 mg Documented by: Folic Acid (Folic Acid 1 Mg Tab) 1 mg PO QAM [facility] Stop: 06/20/20 08:59 Last Admin: 05/26/20 09:15 Dose: 1 mg Documented by: Hydromorphone HCl (Hydromorphone Inj 0.5 Mg/0.5 Ml Syr) 0.5 mg IV Q4H PRN PRN Reason: Pain or Pre PT Stop: 06/04/20 12:35 Albumin Human (Albumin 25%) 50 mls @ 50 mls/hr IV 0600,0700,1400,1500,2200,2300 [facility] Stop: 05/27/20 13:59 Last Infusion: 05/26/20 08:48 Dose: Infused Documented by: Magnesium Sulfate/Dextrose (Magnesium Sulfate / D5w) 1 gm in 100 mls @ 50 mls/hr IV Q2H [facility] Stop: 05/26/20 17:59 Last Infusion: 05/26/20 12:41 Dose: Infused Documented by: Influenza Virus Vaccine Quadrival (Influenza Virus Quad Vaccine 0.5 Ml Syr) 0.5 ml IM .ONCE ONE Stop: 05/27/20 09:01 Lactulose (Lactulose Syrup 20 Gm/30 Ml Udc) 20 gm PO TID [facility] Stop: 06/25/20 08:59 Last Admin: 05/26/20 14:10 Dose: 20 gm Documented by: Levothyroxine Sodium (Levothyroxine Sodium 25 Mcg Tablet) 25 mcg PO DAILYBB [facility] Stop: 06/20/20 06:29 Last Admin: 05/26/20 06:25 Dose: 25 mcg Documented by: Metoclopramide HCl (Metoclopramide Hcl Inj 5 Mg/Ml 2 Ml Vial) 10 mg IV Q6H PRN PRN Reason: Nausea And Vomiting Stop: 06/20/20 12:35 Midodrine (Midodrine Hcl 10 Mg Tab) 10 mg PO TID@0800,1200,1700 [facility] Stop: 06/23/20 07:59 Last Admin: 05/26/20 14:10 Dose: 10 mg Documented by: Multivitamins (Multivitamin Tab) 1 tab PO QAM [facility] Stop: 06/21/20 08:59 Last Admin: 05/26/20 09:15 Dose: 1 tab Documented by: Naloxone HCl (Naloxone Hcl 0.4 Mg/1 Ml Vial/Carp) 0.1 mg IV UD PRN PRN Reason: Opiate Overdose Stop: 06/19/20 18:58 Naloxone HCl (Naloxone Hcl 0.4 Mg/1 Ml Vial/Carp) 0.1 mg IV Q5M PRN PRN Reason: Oversedation/Resp Depression Stop: 06/20/20 12:35 Octreotide Acetate (Octreotide Acetate 100 Mcg/Ml Vial) 100 mcg SQ Q8H [facility] Stop: 06/24/20 09:29 Last Admin: 05/26/20 11:11 Dose: 100 mcg Documented by: Ondansetron HCl (Ondansetron Inj 2 Mg/Ml 2 Ml Vial) 4 mg IV Q6H PRN PRN Reason: Nausea And Vomiting Stop: 06/19/20 18:58 Last Admin: 05/21/20 05:31 Dose: 4 mg Documented by: Ondansetron HCl (Ondansetron Inj 2 Mg/Ml 2 Ml Vial) 4 mg IV Q6H PRN PRN Reason: Nausea And Vomiting Stop: 06/20/20 12:35 Oxycodone HCl (Oxycodone Hcl Ir 5 Mg Tab (Immediate Release)) 5 mg PO Q4H PRN PRN Reason: MODERATE Pain (Scale 4,5,6) Stop: 06/03/20 18:58 Last Admin: 05/20/20 21:44 Dose: 5 mg Documented by: Pantoprazole Sodium (Pantoprazole 40 Mg Tab) 40 mg PO QAM [facility] Stop: 06/20/20 08:59 Last Admin: 05/24/20 08:49 Dose: 40 mg Documented by: Polyethylene Glycol (Polyethylene (Miralax) 17 Gm Pack) 17 gm PO DAILY PRN PRN Reason: Constipation Stop: 06/19/20 18:58 Propranolol HCl (Propranolol Hcl 10 Mg Tab) 10 mg PO TID [facility] Stop: 06/19/20 20:59 Last Admin: 05/23/20 09:13 Dose: Not Given Documented by: Senna/Docusate Sodium (Docusate Sodium/Senna 50/8.6mg Tab) 2 tab PO HS [facility] Stop: 06/19/20 20:59 Last Admin: 05/25/20 22:10 Dose: Not Given Documented by: Sertraline HCl (Sertraline Hcl 100 Mg Tablet) 100 mg PO QPM [facility] Stop: 06/19/20 20:59 Last Admin: 05/25/20 22:09 Dose: 100 mg Documented by: Sodium Bicarbonate (Sodium Bicarbonate 650 Mg Tab) 650 mg PO Q8 [facility] Stop: 06/24/20 13:59 Last Admin: 05/26/20 06:24 Dose: 650 mg Documented by: Spironolactone (Spironolactone 25 Mg Tab) 50 mg PO BID [facility] Stop: 06/19/20 20:59 Last Admin: 05/22/20 08:05 Dose: 50 mg Documented by: Thiamine HCl (Thiamine Hcl 100 Mg Tab) 100 mg PO QAM [facility] Stop: 06/21/20 11:59 Last Admin: 05/26/20 09:15 Dose: 100 mg Documented by: PG Care Time/CCT Total # of Minutes Spent Total Time Spent: 40 Total Time Spent with Patient: Total time spent is greater than 50% in coordination of care (as documented) at patient's floor/unit and/or counseling patient: Coding Level of Care Code 56018 Subseq Hosp Care Lvl 3 Diagnoses Acute kidney injury N17.9 Closed right ankle fracture S82.891A Encounter type: initial encounter Cirrhosis K70.30 Ascites presence: without ascites Hepatic cirrhosis type: alcoholic cirrhosis Anemia D64.9 Elevated bilirubin R17 Thrombocytopenia D69.6 Alcohol withdrawal F10.239 DVT prophylaxis Z29.9 (1) Closed right ankle fracture Encounter type: initial encounter Qualified Code(s): S82.891A - Other fract ure of right lower leg, initial encounter for closed fracture (2) Cirrhosis Ascites presence: without ascites Hepatic cirrhosis type: alcoholic cirrhosis Qualified Code(s): K70.30 - Alcoholic cirrhosis of liver without ascites
--- NOTE | 2020-05-26 14:40 | Palliative Care Consultation ---
Date of Consultation May 26, 2020 Assessment & Plan (1) Goals of care, counseling/discussion: Patient is a 59-year-old female with a medical history significant for alcoholic cirrhosis-with hospitalization in January for encephalopathy, and jaundice who presented to [facility] on 05/20 after injuring her right ankle the day prior. Patient says she fell at home. Patient underwent ORIF on 05/21 and was doing well postoperatively. Patient is nonweightbearing right ankle. Patient with a history of CKD-creatinine on admission was 1.06-postop creatinine continued to climb and was 4.62 today. Patient did have a hemoglobin of 7.2 and was transfused 1 unit of packed cells, follow-up hemoglobin is 8.2 today. Patient's ammonia was 70 yesterday, 73 today. Patient is on lactulose having 3+ bowel movements daily. Albumin on admission was 2.5, INR 1.5 and bilirubin 2.8. Patient was given a fluid bolus-urine output did not significantly increase. Patient's urine output has dropped as low as 30 cc in 24 hours, was 175 cc yesterday. Patient seen and examined, no family at bedside. Patient was able to give the year as 2019, could not even guess the month, did not know who the president was. Speech was slow and hesitant. -Goals of care-spoke with patient's sister-patient has a living will-in her living will she stated she would not want dialysis. Goal is comfort measures only, CODE STATUS will be changed to DNR/DNI, no IV antibiotics and no artificial hydration or tube feeds. Patient's sister states she is unable to care for her-patient will need placement with hospice services. -Confusion-ammonia level 73 in addition to jaundice and HUMBERTO. Patient is not able to make her own medical decisions -Cirrhosis-due to alcoholism. With an INR of 1.5, albumin 2.5 and history of ascites-patient fits hospice criteria for end-stage liver disease. Now with acute renal failure/hepatorenal syndrome-patient is hospice appropriate. -Acute on chronic CKD-renal function worsening-4 urine output. Likely hepatorenal syndrome -Anemia-transfused 1 unit for hemoglobin of 7.2 -Acute right ankle fracture-status post ORIF-nonweightbearing right lower extremity -PPS 30%, prognosis is poor-likely a week or less given her renal failure and cirrhosis. (2) Cirrhosis: Ascites presence: without ascites Hepatic cirrhosis type: alcoholic cirrhosis Qualified Code(s): K70.30 - Alcoholic cirrhosis of liver without ascites (3) Acute kidney injury: (4) Elevated bilirubin: (5) Closed right ankle fracture: Encounter type: initial encounter Qualified Code(s): S82.891A - Other fracture of right lower leg, initial encounter for closed fracture (6) Anemia: History of Present Illness Reason for Consultation: Address CODE STATUS, goals of care Requesting Physician: Dr. Raffi Simon Attending Physician: Vinh Schneider MD History of Present Illness Chart reviewed, patient seen and examined, patient confused, unable to give a reliable history or make her own medical decisions. Spoke with patient's sister, Emeli Caro, . Collaborated with Dr. Barclay. Patient is a 59-year-old female with a medical history significant for alcoholic cirrhosis-with hospitalization in January for encephalopathy, and jaundice who presented to [facility] on 05/20 after injuring her right ankle the day prior. Patient says she fell at home. Patient underwent ORIF on 05/21 and was doing well postoperatively. Patient is nonweightbearing right ankle. Patient with a history of CKD-creatinine on admission was 1.06-postop creatinine continued to climb and was 4.62 today. Patient did have a hemoglobin of 7.2 and was transfused 1 unit of packed cells, follow-up hemoglobin is 8.2 today. Patient's ammonia was 70 yesterday, 73 today. Patient is on lactulose having 3+ bowel movements daily. Albumin on admission was 2.5, INR 1.5 and bilirubin 2.8. Patient was given a fluid bolus-urine output did not significantly increase. Patient's urine output has dropped as low as 30 cc in 24 hours, was 175 cc yesterday. Patient seen and examined, no family at bedside. Patient was able to give the year as 2019, could not even guess the month, did not know who the president was. Speech was slow and hesitant. -Goals of care-spoke with patient's sister-patient has a living will-in her living will she stated she would not want dialysis. Goal is comfort measures only, CODE STATUS will be changed to DNR/DNI, no IV antibiotics and no artificial hydration or tube feeds. Patient's sister states she is unable to care for her-patient will need placement with hospice services. -Confusion-ammonia level 73 in addition to jaundice and HUMBERTO. Patient is not able to make her own medical decisions -Cirrhosis-due to alcoholism. With an INR of 1.5, albumin 2.5 and history of ascites-patient fits hospice criteria for end-stage liver disease. Now with acute renal failure/hepatorenal syndrome-patient is hospice appropriate. -Acute on chronic CKD-renal function worsening-4 urine output. Likely hepatorenal syndrome -Anemia-transfused 1 unit for hemoglobin of 7.2 -Acute right ankle fracture-status post ORIF-nonweightbearing right lower extremity -PPS 30%, prognosis is poor-likely a week or less given her renal failure and cirrhosis. Allergies Allergy/AdvReac Type Severity Reaction Status Date / Time No Known Allergies Allergy Unverified 05/20/20 16:10 Home Medications Home Medications Medication Instructions Recorded Confirmed Type ferrous sulfate 325 mg PO QAM 05/20/20 05/20/20 History folic acid 1 mg PO QAM 05/20/20 05/20/20 History lactulose 20 g PO DAILY 05/20/20 05/20/20 History levothyroxine 25 mcg PO DAILY 05/20/20 05/20/20 History pantoprazole 40 mg PO QAM 05/20/20 05/20/20 History propranolol 40 mg PO DAILY 05/20/20 05/20/20 History sertraline [Zoloft] 100 mg PO QPM 05/20/20 05/20/20 History spironolactone 50 mg PO BID 05/20/20 05/20/20 History Patient History Medical History Chronic kidney disease Cirrhosis of liver History of alcohol abuse Hypothyroidism Incontinence Social History Smoking Status: Current every day smoker Cigarettes Per Day: 3-4; Second Hand Exposure: No; Do You Dip or Chew Tobacco: No; Tobacco Cessation Education Requested by Patient: No Hx Alcohol Use: Yes Alcohol type: beer Hx Substance Use: No Preferred Language: Sammarinese Communication Ability: Effective [employer] Required: No Beliefs That Will Affect Care: None Current Living Situation: Alone Other Information That Helps Us Care for You: No Feels Safe at Home: Yes Safety Concerns: Feels Safe At This Time Assistive Devices: None Review of Systems Review of Systems: Patient confused but was alert enough to give ROS-patient denied pain, fever, chills, chest pain, shortness of breath, or abdominal pain. Positive for jaundice, confusion and fatigue Physical Exam Physical Exam: PE: Patient awake, somnolent, no acute distress HEENT: EOMI, sclera slightly icteric, dry mucous membranes Respirations: Unlabored, clear breath sounds CV: Regular rate, trace edema Abdomen: Soft, nontender Extremities: Right lower extremity with postop dressing in place Neuro: Confused, oriented to person and place Results & Data ([facility]) Vital Signs (Past 12 Hours) Vital Signs Temp Pulse Resp BP Pulse Ox 05/26/20 07:56 97.9 F 71 16 96/55 L 96 05/26/20 06:25 97.5 F L 72 16 95/61 L 94 PG Care Time/CCT Total # of Minutes Spent Total Time Spent with Patient: Total time spent 70 minutes with greater than 50% of the time spent at bedside assessing patient's cognitive status, trying to determine patient's goals-spoke with patient's sister who is her POA-transition to comfort care. Collaborated with Dr. Barclay Coding Level of Care Code 70933 Inpt Consult Level 3 Diagnoses Goals of care, counseling/discussion Z71.89 Cirrhosis K70.30 Ascites presence: without ascites Hepatic cirrhosis type: alcoholic cirrhosis Acute kidney injury N17.9 Elevated bilirubin R17 Closed right ankle fracture S82.891A Encounter type: initial encounter Anemia D64.9 Time Spent (min) 70
[2020-05-27] MEDS: ACETAMINOPHEN 500 MG TAB PO SCH ×3 (06:30→22:35)
[2020-05-27] MEDS: MAGNESIUM SULFATE / D5W 1 GM/100 ML BAG IV SCH (07:12)
[2020-05-27] MEDS ORDERED: INFLUENZA ADMINISTRATION CHARGE ONE (09:00)
[2020-05-27] MEDS ORDERED: INFLUENZA VIRUS QUAD VACCINE 0.5 ML SYR IM ONE (09:00)
--- NOTE | 2020-05-27 10:01 | Nephrology Progress Note ---
Date of Service May 27, 2020 Assessment & Plan (1) Acute kidney injury: Clinically consistent with HRS type 1 and possible underlying ATN. Caroline has elected to proceed with comfort measures. Nephrology will sign-off. Please call with questions or concerns. (2) Closed right ankle fracture: POD #6 s/p ORIF (3) Cirrhosis: Prognosis guarded. (4) Anemia: 1 u PRBC transfused 05/25. Admission and Anticipated Discharge Date Admission Date: May 20, 2020 Subjective No acute events overnight. Transitioned to comfort care. I spoke in detail with Caroline's sister (Emeli) yesterday. Caroline feels well this morning. Denies pain. Review of Systems Review of Systems: All systems reviewed & are unremarkable except as noted in HPI & below Physical Exam Constitutional: well developed; no acute distress Eyes: sclerae not anicteric and no corneal abnormality ENMT: Mouth: + dry oral mucous membranes; no oral mucosal abnormality Neck: normal visual inspection and trachea midline Respiratory: normal respiratory effort Auscultation: lungs clear to auscultation bilaterally and + rales (few at right base) Cardiovascular: Rate/Rhythm: regular rate Heart Sounds: normal S1 and normal S2 Extremities: + edema (trace) Gastrointestinal (Abdomen): Inspection/Auscultation: + abdomen distended Percussion/Palpation: abdomen nontender Musculoskeletal: Extremities: no cyanosis and no clubbing Skin: normal turgor and + jaundice Neurologic: Motor/Sensory: no tremor and no asterixis Psychiatric: Orientation: alert and oriented x 3 Genitourinary: Rm draining concentrated urine PG Care Time/CCT Total # of Minutes Spent Total Time Spent with Patient: Total time spent is greater than 50% in coordination of care (as documented) at patient's floor/unit and/or counseling patient: Coding Level of Care Code 15704 Subseq Hosp Care Lvl 3 Diagnoses Acute kidney injury N17.9 Closed right ankle fracture S82.891A Encounter type: initial encounter Cirrhosis K70.30 Ascites presence: without ascites Hepatic cirrhosis type: alcoholic cirrhosis Anemia D64.9 (1) Closed right ankle fracture Encounter type: initial encounter Qualified Code(s): S82.891A - Other fracture of right lower leg, initial encounter for closed fracture (2) Cirrhosis Ascites presence: without ascites Hepatic cirrhosis type: alcoholic cirrhosis Qualified Code(s): K70.30 - Alcoholic cirrhosis of liver without ascites
--- NOTE | 2020-05-27 13:59 | Progress Notes ---
DATE: 05/27/2020 SUBJECTIVE: A 59-year-old white female now 6 days out from ORIF of right trimalleolar ankle fracture. She seems pretty confused today. Her creatinine continues to bump. She is apparently on hospice/supportive care. She does not appear to be in any significant pain. PHYSICAL EXAMINATION: EXTREMITIES: Examination of the right leg reveals the cast to be fitting well. She can flex and extend her toes appropriately. She does follow commands. She is neurologically intact. LABORATORY DATA: Hemoglobin is stable at 8.2. Hematocrit 25.0. Her creatinine continues to increase at 4.62. ASSESSMENT: A 59-year-old white female now 6 days out from open reduction and internal fixation of right bimalleolar ankle/trimalleolar ankle fracture. Her ankle seems to be doing well. Her creatinine continues to increase and she is apparently denying dialysis and on hospice/supportive care. PLAN: From the orthopedic standpoint, she just needs to leave the splint on for a total of 2 weeks. I will see her back somewhere between 2 and 3 weeks, remove the stitches. She needs to keep all pressure off her heel. She is nonweightbearing for these first 2 weeks. Any orthopedic questions can be directed at [phone].
--- NOTE | 2020-05-27 23:08 | Hospitalist Progress Note ---
Date of Service May 27, 2020 Assessment & Plan (1) Acute kidney injury: Cr rising, up to 4.6 on 05/26 likely from volume losses, hypotension perioperatively and post operatively, also with anemia give one unit PRBC 05/25 to try to improve blood pressure, renal perfusion BP low normal, treated with Midodrine 10mg TID, Albumin q8 hours, Octreotide Q8 K rising > 5 Dr. Simon has diagnosed her with HRS, she is oliguric, not responding to treatment consulted palliative care will make comfort measures only, plan to discharge to SNF on hospice/palliative care on Saturday comfort care status ordered, DNR (2) Closed right ankle fracture: Patient has a bimalleolar vs trimalleolar fracture right ankle which was sustained at least 1 day prior to admission she tripped in her kitchen, rolled the ankle surgical correction on 05/21/2020 NWB on right ankle, aspirin 81mg BID for DVT prophylaxis clear for d/c from orthopedic standpoint initially planned for rehab now will go with hospice care (3) Cirrhosis: Cirrhosis due to alcoholism has been without drinking alcohol for some time patient reportedly was in [facility] for hepatic encephalopathy in January. She reportedly has not had a paracentesis for 9 months. Continues on lactulose and holding Aldactone due to HUMBERTO minimal ascites on exam mentation is a little slow today, ammonia is up to 73 stop Lactulose as she hates having diarrhea and it makes her uncomfortable comfort measures (4) Anemia: no further labs, comfort (5) Elevated bilirubin: due to cirrhosis (6) Thrombocytopenia: due to cirrhosis (7) Alcohol withdrawal: stop gabapentin (8) DVT prophylaxis: stop aspirin, comfort measures Admission and Anticipated Discharge Date Admission Date: May 20, 2020 Subjective patient sleeping a lot today, not much oral intake very little out from [place] spoke with sister at the bedside agreed that patient is comfortable Review of Systems Review of Systems: Unobtainable due to cognitive status (lethargic) Physical Exam Constitutional: WD/WN, vitals as above Neck: trachea midline, no thyromegaly Respiratory: normal respiratory effort, lungs clear to auscultation Cardiovascular: RRR, no murmur, no edema Gastrointestinal (Abdomen): Inspection/Auscultation: + abdomen distended (mild) and normal bowel sounds Percussion/Palpation: abdomen soft and + tympanic to percussion; abdomen nontender, no guarding, abdomen not rigid and no ascites Musculoskeletal: no cyanosis or clubbing, extremities motor strength 5/5 Ankle: + ankle abnormal to inspection (right ankle in cast) Psychiatric: Orientation: + not alert (lethargic) Lymphatic: no cervical or axillary lymphadenopathy Results & Data Results & Data ([facility]) Vital Signs (Past 12 Hours) Vital Signs Temp Pulse Resp BP Pulse Ox 05/27/20 15:04 36.7 C 70 18 113/69 97 Medications Administered Current Inpatient Medications Acetaminophen (Acetaminophen 500 Mg Tab) 1,000 mg PO Q8 RERE Stop: 06/20/20 13:59 Last Admin: 05/27/20 22:35 Dose: 1,000 mg Documented by: Bisacodyl (Bisacodyl 10 Mg Supp) 10 mg NC DAILY PRN PRN Reason: Constipation Stop: 06/20/20 12:35 Diphenhydramine HCl (Diphenhydramine Hcl 25 Mg Cap) 25 mg PO Q8H PRN PRN Reason: Itching Stop: 06/20/20 12:35 Hydromorphone HCl (Hydromorphone Inj 0.5 Mg/0.5 Ml Syr) 0.5 mg IV Q4H PRN PRN Reason: Pain or Pre PT Stop: 06/04/20 12:35 Metoclopramide HCl (Metoclopramide Hcl Inj 5 Mg/Ml 2 Ml Vial) 10 mg IV Q6H PRN PRN Reason: Nausea And Vomiting Stop: 06/20/20 12:35 Naloxone HCl (Naloxone Hcl 0.4 Mg/1 Ml Vial/Carp) 0.1 mg IV UD PRN PRN Reason: Opiate Overdose Stop: 06/19/20 18:58 Naloxone HCl (Naloxone Hcl 0.4 Mg/1 Ml Vial/Carp) 0.1 mg IV Q5M PRN PRN Reason: Oversedation/Resp Depression Stop: 06/20/20 12:35 Ondansetron HCl (Ondansetron Inj 2 Mg/Ml 2 Ml Vial) 4 mg IV Q6H PRN PRN Reason: Nausea And Vomiting Stop: 06/19/20 18:58 Last Admin: 05/21/20 05:31 Dose: 4 mg Documented by: Ondansetron HCl (Ondansetron Inj 2 Mg/Ml 2 Ml Vial) 4 mg IV Q6H PRN PRN Reason: Nausea And Vomiting Stop: 06/20/20 12:35 Oxycodone HCl (Oxycodone Hcl Ir 5 Mg Tab (Immediate Release)) 5 mg PO Q4H PRN PRN Reason: MODERATE Pain (Scale 4,5,6) Stop: 06/03/20 18:58 Last Admin: 05/20/20 21:44 Dose: 5 mg Documented by: Pantoprazole Sodium (Pantoprazole 40 Mg Tab) 40 mg PO QAM [facility] Stop: 06/20/20 08:59 Last Admin: 05/24/20 08:49 Dose: 40 mg Documented by: Propranolol HCl (Propranolol Hcl 10 Mg Tab) 10 mg PO TID [facility] Stop: 06/19/20 20:59 Last Admin: 05/23/20 09:13 Dose: Not Given Documented by: Senna/Docusate Sodium (Docusate Sodium/Senna 50/8.6mg Tab) 2 tab PO HS [facility] Stop: 06/19/20 20:59 Last Admin: 05/25/20 22:10 Dose: Not Given Documented by: Spironolactone (Spironolactone 25 Mg Tab) 50 mg PO BID [facility] Stop: 06/19/20 20:59 Last Admin: 05/22/20 08:05 Dose: 50 mg Documented by: PG Care Time/CCT Total # of Minutes Spent Total Time Spent with Patient: Total time spent is greater than 50% in coordination of care (as documented) at patient's floor/unit and/or counseling patient: Coding Level of Care Code 27370 Subseq Hosp Care Lvl 1 Diagnoses Acute kidney injury N17.9 Closed right ankle fracture S82.891A Encounter type: initial encounter Cirrhosis K70.30 Ascites presence: without ascites Hepatic cirrhosis type: alcoholic cirrhosis Anemia D64.9 Elevated bilirubin R17 Thrombocytopenia D69.6 Alcohol withdrawal F10.239 DVT prophylaxis Z29.9 (1) Closed right ankle fracture Encounter type: initial encounter Qualified Code(s): S82.891A - Other fracture of right lower leg, initial encounter for closed fracture (2) Cirrhosis Ascites presence: without ascites Hepatic cirrhosis type: alcoholic cirrhosis Qualified Code(s): K70.30 - Alcoholic cirrhosis of liver without ascites
[2020-05-28] MEDS: ACETAMINOPHEN 500 MG TAB PO SCH ×3 (06:00→21:35)
--- NOTE | 2020-05-28 08:53 | Hospitalist Progress Note ---
Date of Service May 28, 2020 Assessment & Plan (1) Palliative care encounter: patient is lethargic, comfortable no acute issues (2) Acute kidney injury: Cr rising, up to 4.6 on 05/26 likely from volume losses, hypotension perioperatively and post operatively, also with anemia give one unit PRBC 05/25 to try to improve blood pressure, renal perfusion BP low normal, treated with Midodrine 10mg TID, Albumin q8 hours, Octreotide Q8 K rising > 5 Dr. Simon has diagnosed her with HRS, she is oliguric, not responding to treatment consulted palliative care will make comfort measures only, plan to discharge to SNF on hospice/palliative care on Saturday comfort care status ordered, DNR (3) Closed right ankle fracture: Patient has a bimalleolar vs trimalleolar fracture right ankle which was sustained at least 1 day prior to admission she tripped in her kitchen, rolled the ankle surgical correction on 05/21/2020 NWB on right ankle, aspirin 81mg BID for DVT prophylaxis clear for d/c from orthopedic standpoint initially planned for rehab now will go with hospice care (4) Cirrhosis: Cirrhosis due to alcoholism has been without drinking alcohol for some time patient reportedly was in [facility] for hepatic encephalopathy in January. She reportedly has not had a paracentesis for 9 months. Continues on lactulose and holding Aldactone due to HUMBERTO minimal ascites on exam mentation is a little slow today, ammonia is up to 73 stop Lactulose as she hates having diarrhea and it makes her uncomfortable comfort measures (5) Anemia: no further labs, comfort (6) Elevated bilirubin: due to cirrhosis (7) Thrombocytopenia: due to cirrhosis (8) Alcohol withdrawal: stop gabapentin (9) DVT prophylaxis: stop aspirin, comfort measures Admission and Anticipated Discharge Date Admission Date: May 20, 2020 Subjective patient resting comfortably Review of Systems Review of Systems: Unobtainable due to cognitive status Physical Exam Constitutional: WD/WN, vitals as above Respiratory: normal respiratory effort, lungs clear to auscultation Cardiovascular: RRR, no murmur, no edema Gastrointestinal (Abdomen): Inspection/Auscultation: + abdomen distended (mild) and normal bowel sounds Percussion/Palpation: abdomen soft and + tympanic to percussion; abdomen nontender, no guarding, abdomen not rigid and no ascites Musculoskeletal: no cyanosis or clubbing, extremities motor strength 5/5 Ankle: + ankle abnormal to inspection (right ankle in cast) Psychiatric: Orientation: + not alert (lethargic) Lymphatic: no cervical or axillary lymphadenopathy PG Care Time/CCT Total # of Minutes Spent Total Time Spent with Patient: Total time spent is greater than 50% in coor dination of care (as documented) at patient's floor/unit and/or counseling patient: Coding Level of Care Code 14771 Subseq Hosp Care Lvl 1 Diagnoses Palliative care encounter Z51.5 Acute kidney injury N17.9 Closed right ankle fracture S82.891A Encounter type: initial encounter Cirrhosis K70.30 Ascites presence: without ascites Hepatic cirrhosis type: alcoholic cirrhosis Anemia D64.9 Elevated bilirubin R17 Thrombocytopenia D69.6 Alcohol withdrawal F10.239 DVT prophylaxis Z29.9 (1) Closed right ankle fracture Encounter type: initial encounter Qualified Code(s): S82.891A - Other fracture of right lower leg, initial encounter for closed fracture (2) Cirrhosis Ascites presence: without ascites Hepatic cirrhosis type: alcoholic cirrhosis Qualified Code(s): K70.30 - Alcoholic cirrhosis of liver without ascites
[2020-05-28] MEDS: oxyCODONE HCL IR 5 MG TAB (IMMEDIATE RELEASE) PO PRN (11:09)
[2020-05-28] MEDS: HYDROmorphone INJ 0.5 MG/0.5 ML SYR IV PRN (21:20)
--- NOTE | 2020-05-29 09:47 | Progress Notes ---
DATE: 05/29/2020 SUBJECTIVE: A 59-year-old white female now 8 days out from ORIF of a right trimalleolar ankle fracture subluxation. She is currently on hospice care. No new complaints today. She is sleeping pretty soundly. OBJECTIVE: VITAL SIGNS: Temperature 36.7. Vital signs stable. GENERAL: Shows a middle-aged female lying in bed. She is resting and appears quite comfortable. EXTREMITIES: Examination of the right ankle reveals the splint to be in place. She is clean and dry. No areas of bloody drainage. Fairly minimal swelling. LABORATORIES: None. ASSESSMENT: A 59-year-old white female now 8 days out from open reduction and internal fixation of right trimalleolar ankle fracture. Orthopedically, she is doing okay. Her medical status is quite limited due to her multiple medical issues. She is currently apparently on hospice care as per her request. PLAN: From the orthopedic standpoint, we just need to leave the splint on for about another week. We will take her stitches out approximately somewhere between 2 and 3 weeks postop. She is strictly nonweightbearing for now. She does need to obey heel precautions to prevent heel ulcers. Any orthopedic questions can be directed to me at [phone]. We will continue DVT prophylaxis including TEDs, SCDs, and baby aspirin once a day.
--- NOTE | 2020-05-29 17:58 | Hospitalist Progress Note ---
Date of Service May 29, 2020 Assessment & Plan (1) Palliative care encounter: patient is lethargic, comfortable no acute issues plan for SNF tomorrow for palliative care (2) Acute kidney injury: Cr rising, up to 4.6 on 05/26 likely from volume losses, hypotension perioperatively and post operatively, also with anemia give one unit PRBC 05/25 to try to improve blood pressure, renal perfusion BP low normal, treated with Midodrine 10mg TID, Albumin q8 hours, Octreotide Q8 K rising > 5 Dr. Simon has diagnosed her with HRS, she is oliguric, not responding to treatment consulted palliative care will make comfort measures only, plan to discharge to SNF on hospice/palliative care on Saturday comfort care status ordered, DNR (3) Closed right ankle fracture: Patient has a bimalleolar vs trimalleolar fracture right ankle which was sustained at least 1 day prior to admission she tripped in her kitchen, rolled the ankle surgical correction on 05/21/2020 NWB on right ankle, aspirin 81mg BID for DVT prophylaxis clear for d/c from orthopedic standpoint initially planned for rehab now will go with hospice care (4) Cirrhosis: Cirrhosis due to alcoholism has been without drinking alcohol for some time patient reportedly was in [facility] for hepatic encephalopathy in January. She reportedly has not had a paracentesis for 9 months. Continues on lactulose and holding Aldactone due to HUMBERTO minimal ascites on exam mentation is a little slow today, ammonia is up to 73 stop Lactulose as she hates having diarrhea and it makes her uncomfortable comfort measures (5) Anemia: no further labs, comfort (6) Elevated bilirubin: due to cirrhosis (7) Thrombocytopenia: due to cirrhosis (8) Alcohol withdrawal: stop gabapentin (9) DVT prophylaxis: stop aspirin, comfort measures Admission and Anticipated Discharge Date Admission Date: May 20, 2020 Subjective patient sleeping updated sister at the bedside, plan for SNF tomorrow Review of Systems Review of Systems: Unobtainable due to reduced consciousness Physical Exam Constitutional: WD/WN, vitals as above Respiratory: normal respiratory effort, lungs clear to auscultation Cardiovascular: RRR, no murmur, no edema Gastrointestinal (Abdomen): normal bowel sounds, soft, nontender, no hepatosplenomegaly Musculoskeletal: no cyanosis or clubbing, extremities motor strength 5/5 Ankle: + ankle abnormal to inspection (right ankle in cast) Psychiatric: Orientation: + not alert (lethargic) Results & Data Results & Data ([facility]) Medications Administered Current Inpatient Medications Acetaminophen (Acetaminophen 500 Mg Tab) 1,000 mg PO Q8 RERE Stop: 06/20/20 13:59 Last Admin: 05/28/20 21:35 Dose: Not Given Documented by: Bisacodyl (Bisacodyl 10 Mg Supp) [address] DAILY PRN PRN Reason: Constipation Stop: 06/20/20 12:35 Diphenhydramine HCl (Diphenhydramine Hcl 25 Mg Cap) 25 mg PO Q8H PRN PRN Reason: Itching Stop: 06/20/20 12:35 Hydromorphone HCl (Hydromorphone Inj 0.5 Mg/0.5 Ml Syr) 0.5 mg IV Q4H PRN PRN Reason: Pain or Pre PT Stop: 06/04/20 12:35 Last Admin: 05/28/20 21:20 Dose: 0.5 mg Documented by: Metoclopramide HCl (Metoclopramide Hcl Inj 5 Mg/Ml 2 Ml Vial) 10 mg IV Q6H PRN PRN Reason: Nausea And Vomiting Stop: 06/20/20 12:35 Naloxone HCl (Naloxone Hcl 0.4 Mg/1 Ml Vial/Carp) 0.1 mg IV UD PRN PRN Reason: Opiate Overdose Stop: 06/19/20 18:58 Naloxone HCl (Naloxone Hcl 0.4 Mg/1 Ml Vial/Carp) 0.1 mg IV Q5M PRN PRN Reason: Oversedation/Resp Depression Stop: 06/20/20 12:35 Ondansetron HCl (Ondansetron Inj 2 Mg/Ml 2 Ml Vial) 4 mg IV Q6H PRN PRN Reason: Nausea And Vomiting Stop: 06/19/20 18:58 Last Admin: 05/21/20 05:31 Dose: 4 mg Documented by: Ondansetron HCl (Ondansetron Inj 2 Mg/Ml 2 Ml Vial) 4 mg IV Q6H PRN PRN Reason: Nausea And Vomiting Stop: 06/20/20 12:35 Oxycodone HCl (Oxycodone Hcl Ir 5 Mg Tab (Immediate Release)) 5 mg PO Q4H PRN PRN Reason: MODERATE Pain (Scale 4,5,6) Stop: 06/03/20 18:58 Last Admin: 05/28/20 11:09 Dose: 5 mg Documented by: Pantoprazole Sodium (Pantoprazole 40 Mg Tab) 40 mg PO QAM [facility] Stop: 06/20/20 08:59 Last Admin: 05/24/20 08:49 Dose: 40 mg Documented by: Propranolol HCl (Propranolol Hcl 10 Mg Tab) 10 mg PO TID RERE Stop: 06/19/20 20:59 Last Admin: 05/23/20 09:13 Dose: Not Given Documented by: Senna/Docusate Sodium (Docusate Sodium/Senna 50/8.6mg Tab) 2 tab PO HS [facility] Stop: 06/19/20 20:59 Last Admin: 05/25/20 22:10 Dose: Not Given Documented by: Spironolactone (Spironolactone 25 Mg Tab) 50 mg PO BID [facility] Stop: 06/19/20 20:59 Last Admin: 05/22/20 08:05 Dose: 50 mg Documented by: PG Care Time/CCT Total # of Minutes Spent Total Time Spent with Patient: Total time spent is greater than 50% in coordination of care (as documented) at patient's floor/unit and/or counseling patient: Coding Level of Care Code 49055 Subseq Hosp Care Lvl 1 Diagnoses Palliative care encounter Z51.5 Acute kidney injury N17.9 Closed right ankle fracture S82.891A Encounter type: initial encounter Cirrhosis K70.30 Ascites presence: without ascites Hepatic cirrhosis type: alcoholic cirrhosis Anemia D64.9 Elevated bilirubin R17 Thrombocytopenia D69.6 Alcohol withdrawal F10.239 DVT prophylaxis Z29.9 (1) Closed right ankle fracture Encounter type: initial encounter Qualified Code(s): S82.891A - Other fracture of right lower leg, initial encounter for closed fracture (2) Cirrhosis Ascites presence: without ascites Hepatic cirrhosis type: alcoholic cirrhosis Qualified Code(s): K70.30 - Alcoholic cirrhosis of liver without ascites
[2020-05-29] MEDS: HYDROmorphone INJ 0.5 MG/0.5 ML SYR IV PRN (19:32)
--- NOTE | 2020-05-30 11:36 | Discharge Summary ---
Date of Service May 30, 2020 Admission HPI Per Admitting Provider Patient presents 24 hours after falling at home she is a trimalleolar ankle injury. She is a significant history of previous alcoholism and cirrhosis taking daily lactulose and Aldactone. She has been recently admitted to [facility] in January of this year for hepatic encephalopathy. Reportedly she has been drinking for a few years. Does not have any local physicians. We are asked to admit the patient for medical optimization given her paucity of past records in preparation for surgical repair of her ankle fracture. Dr. Schneider was contacted by the emergency department Patient herself is pleasant she is slightly forgetful she can record most of her medical history she states that she has not had a paracentesis for 9 months that she typically takes her lactulose and Aldactone religiously denies any other significant medical problems Principal Diagnosis Trimalleolar ankle fracture with fall, hepatorenal syndrome, end-stage cirrhosis Discharge Exam Constitutional + ill appearing, + lethargic and + overweight Eyes + scleral abnormality (Icterus) ENMT Ears: no hearing impairment and no EAC abnormality Respiratory normal respiratory effort, lungs clear to auscultation Cardiovascular Rate/Rhythm: regular rate and regular rhythm Extremities: + edema (1+ pitting edema the left leg) Gastrointestinal (Abdomen) Inspection/Auscultation: + hypoactive bowel sounds; abdomen not distended Percussion/Palpation: abdomen soft; abdomen nontender Musculoskeletal Right leg and ankle in splint not removed, wiggles toes to command Neurologic + not awake (Very drowsy but does open eyes briefly to verbal stimulus) Speech / Cognition: + abnormal speech (Jumbled) Discharge Data Allergies Allergy/AdvReac Type Severity Reaction Status Date / Time No Known Allergies Allergy Unverified 05/20/20 16:10 Consultations 05/20/20 16:09 ED Decision to Admit Stat 05/20/20 18:59 Consult Anesthesiology Routine Consult Case Management - Discharge Planning Routine Consult Health Information Management Stat Consult Orthopedic Surgery Routine 05/21/20 12:36 Consult Case Management - Discharge Planning Routine 05/24/20 07:46 Consult Nephrology Routine 05/26/20 10:57 Consult Palliative Care Routine Procedures Performed Operation Date: 05/21/20 09:30 Actual Procedures p Right Ankle Open Reduction Internal Fixation(Right) - Vinh Schneider MD Ordered Studies 05/21/20 07:00 FL ankle RT min 3V RTN Routine FL fluoroscopy <1hr Routine 05/24/20 15:00 US renal/blad retro comp Routine Right ankle x-ray x2 Tibia/fibula x-ray right Right foot x-ray Chest x-ray Hospital Course (1) Palliative care encounter: patient is lethargic, comfortable no acute issues plan for skilled nursing placement at [facility] with hospice today -Will order morphine as needed for pain and Ativan as needed for anxiety or agitation although she has not needed anything for pain in 48 hours and is comfortable She has not eaten in 3 days, Rm catheter to remain in place for comfort, and no oral medications to be given except for liquid morphine and can crush Ativan and apply sublingually (2) Acute kidney injury: Cr rising, up to 4.6 on 05/26 likely from volume losses, hypotension perioperatively and post operatively, also with anemia give one unit PRBC 05/25 to try to improve blood pressure, renal perfusion BP low normal, treated with Midodrine 10mg TID, Albumin q8 hours, Octreotide Q8 K rising > 5 Dr. Simon has diagnosed her with hepatorenal syndrome, she is oliguric, not responding to treatment consulted palliative care Have converted to comfort measures only, plan to discharge to skilled nursing with hospice today comfort care status ordered, DNR No further laboratories need to be drawn (3) Closed right ankle fracture: Patient has a bimalleolar vs trimalleolar fracture right ankle which was sustained at least 1 day prior to admission she tripped in her kitchen, rolled the ankle surgical correction on 05/21/2020 NWB on right ankle, aspirin 81mg BID for DVT prophylaxis however she is not eating or taking any pills at this time clear for d/c from orthopedic standpoint initially planned for rehab now will go with hospice care (4) Cirrhosis: Cirrhosis due to alcoholism has been without drinking alcohol for some time patient reportedly was in [facility] for hepatic encephalopathy in January. She reportedly has not had a paracentesis for 9 months. Was on lactulose and holding Aldactone due to HUMBERTO but now discontinuing all oral medications for hospice as above minimal ascites on exam mentation continues to be slow today, ammonia is up to 73 on last check Have discontinued the lactulose as she hates having diarrhea and it makes her uncomfortable comfort measures only (5) Anemia: no further labs, comfort (6) Elevated bilirubin: due to cirrhosis (7) Thrombocytopenia: due to cirrhosis (8) Alcohol withdrawal: stop gabapentin, no seizure activity (9) DVT prophylaxis: stop aspirin, comfort measures Discharge to [facility] with hospice today Total Time Total Time Spent Total Time Spent (In Minutes): 35 minutes Total Time Includes: Examination of the Patient, Discharge Planning, Medication Reconciliation and Communication With Other Providers (Orthopedic surgery) Discharge Plan Discharge Items Patient Disposition: Hospice - Medical Facility Reason For Visit: ANKLE FRACTURE Discharge Diagnosis: ORIF Right Ankle Fracture, hepatorenal syndrome, end-stage cirrhosis Condition on Discharge: Fair Activity: Per Instructions section Activity Comment: NO weight right ankle for 2 weeks, Keep all pressure off heel Bathing Comment: Keep Splint clean, dry, and in place Weightbearing: Right non-weightbearing Non-emergency contact: Primary Care Provider Call non-emergency contact if: you have any medication questions, your symptoms worsen and your pain is not controlled Follow-up/Referrals: Vinh Schneider MD [Physician] - (Orthopedic follow-up 2-3 weeks from surgery date.) PCP,NO [Primary Care Provider] - Diet: Other - See Diet Comment Diet Comment: Diet for comfort if tolerated Addtl Attending Provider Instructions: No weight on right leg for 2 weeks. Keep splint clean, dry, and in place until return to clinic appointment, Return to clinic 2 weeks Pending Studies at Discharge: No Stand-Alone Forms: My [facility] Skilled Items Patient informed of condition?: Yes DNR: Yes Discharge Level of Care: Other Communicable Disease: No Discharge Prognosis: Deteriorating Lines: None Urinary Catheter: Yes Medications and DC Order Prescriptions: New morphine concentrate 100 mg/5 mL (20 mg/mL) solution 5 mg PO Q6H PRN (Reason: pain or breathlessness) Qty: 15 RF: 0 lorazepam 0.5 mg tablet 0.5 mg PO Q6 PRN (Reason: agitation or anxiety) Qty: 10 RF: 0 Discontinued ferrous sulfate 325 mg (65 mg iron) Capsule, Extended Release 325 mg PO QAM RF: 0 folic acid 1 mg Tablet 1 mg PO QAM RF: 0 lactulose 10 gram/15 mL Solution 20 g PO DAILY RF: 0 levothyroxine 25 mcg Capsule 25 mcg PO DAILY RF: 0 pantoprazole 40 mg Tablet,Delayed Release (Dr/Ec) 40 mg PO QAM RF: 0 propranolol 40 mg Tablet 40 mg PO DAILY RF: 0 spironolactone 50 mg Tablet 50 mg PO BID RF: 0 sertraline [Zoloft] 100 mg Tablet 100 mg PO QPM RF: 0 Discharge Orders: Discharge Order (Routine); Ordered 05/30/20 Ordered By: Aaliyah Gerardo Admission Data Admit Date/Time: 05/20/20 17:02 Attending Provider: Vinh Schneider Admit Provider: Vinh Schneider Primary Care Provider: PCP,NO Other Providers: Murphy Wilson ; Vinh Schneider ; [facility] ; [facility] ; Raffi Simon ; Isi Guzman ; Aaliyah Gerardo Coding Level of Care Code D/C Day Management >30 mins Diagnoses Palliative care encounter Z51.5 Acute kidney injury N17.9 Closed right ankle fracture S82.891A Encounter type: initial encounter Cirrhosis K70.30 Ascites presence: without ascites Hepatic cirrhosis type: alcoholic cirrhosis Anemia D64.9 Elevated bilirubin R17 Thrombocytopenia D69.6 Alcohol withdrawal F10.239 DVT prophylaxis Z29.9
[2020-05-30] MEDS ORDERED: MoRPHine SULFATE 5 MG/0.25 ML UDP PO PRN (12:01)
== END 2020-05-30 17:24 | disposition hospice, inpatient (51) | DRG 492 ==
LOC: ED 14:45 → 3W 17:02